=== PATIENT | female | born 1980 | race Caucasian/White ===

== ENCOUNTER 2017-05-12 09:26 | Emergency (ER) | payer MEDICAID ==
[~2017-05-12] VITALS: Ht 167.6 cm; Wt 115.0 kg
[~2017-05-12 09:26] MED LIST: BENZ1TAB7 PO; BUSP5TAB3 PO; CLOZ200T12 PO; HYDR-569 PO; ONDA4TAB12 PO; OXCA300T PO; POLY17PO2 PO; TOPI25TA15 PO; TRAZ-143 PO; VENL75CA55 PO
[2017-05-12 09:56] VITALS: BP 122/74
[2017-05-12] MEDS ORDERED: ketorolac tromethamine 15mg/ml inj. IM ONE (10:45)
[2017-05-12] MEDS ORDERED: cyclobenzaprine 10mg tablet PO ONE (10:45)
[2017-05-12] MEDS ORDERED: METH-360 PO (10:56)
== END 2017-05-12 11:17 | disposition home or self-care (01) ==
LOC: ER 09:26
DX: S29.012A Strain of muscle and tendon of back wall of thorax, initial encounter (principal); G89.29 Other chronic pain; Z88.5 Allergy status to narcotic agent; Z79.899 Other long term (current) drug therapy; V49.9XXA Car occupant (driver) (passenger) injured in unspecified traffic accident, initial encounter; Y93.89 Activity, other specified; Y92.89 Other specified places as the place of occurrence of the external cause; Y99.8 Other external cause status
CPT/HCPCS: 96372; 99283; J1885

== ENCOUNTER 2017-11-17 14:11 | Emergency (ER) | payer MEDICAID ==
[~2017-11-17] VITALS: Ht 167.6 cm; Wt 114.0 kg
[~2017-11-17 14:11] MED LIST changes: +METH-360 PO; -OXCA300T PO; +OXCA300T16 PO; -TRAZ-143 PO; +TRAZ-218 PO
[2017-11-17] MEDS ORDERED: morphine 4 MG/ML inj SYRINge IV PRN (14:25)
[2017-11-17] MEDS ORDERED: ondansetron/PF 4mg/2ml inj IV ONE (14:25)
[2017-11-17] MEDS ORDERED: propofol 10mg/ml 20ml vial IV ONE (14:35)
[2017-11-17] MEDS ORDERED: HYDR-565 PO (15:39)
[2017-11-17 16:41] VITALS: BP 148/77
== END 2017-11-17 16:45 | disposition home or self-care (01) ==
LOC: ER 14:11
DX: S82.831A Other fracture of upper and lower end of right fibula, initial encounter for closed fracture (principal); S82.301A Unspecified fracture of lower end of right tibia, initial encounter for closed fracture; G89.29 Other chronic pain; M54.9 Dorsalgia, unspecified; Z88.6 Allergy status to analgesic agent; X58.XXXA Exposure to other specified factors, initial encounter; Y93.89 Activity, other specified; Y92.89 Other specified places as the place of occurrence of the external cause; Y99.8 Other external cause status
CPT/HCPCS: 27810; 73600; 73610; 96374; 96375; 99152; 99285; J2270; J2405; J2704; J7030

== ENCOUNTER 2017-11-19 17:52 | Inpatient (IN) | payer MEDICAID ==
[~2017-11-19] VITALS: Ht 168.9 cm; Wt 109.0 kg
[~2017-11-19 17:52] MED LIST changes: +HYDR-565 PO
[2017-11-19] MEDS ORDERED: normal saline 1000ML IV soln IVB ONE ×2 (18:35)
[2017-11-19 18:59] LABS: BASOPHILS % (AUTO) 0.3 % (0-1); EOSINOPHILS # (AUTO) 0.2 X10'3 (0-0.9); EOSINOPHILS % (AUTO) 1.4 % (0-6); HEMATOCRIT 30.3 % (35.0-45.0); HEMOGLOBIN 10.1 g/dl (12.0-16.0); LYMPHOCYTES # (AUTO) 1.8 X10'3 (1.1-4.8); LYMPHOCYTES % (AUTO) 14.1 % (21-51); MEAN CORPUSCULAR HEMOGLOBIN 27.7 PG (27.0-31.0); MEAN CORPUSCULAR HGB CONC 33.4 % (33.0-36.5); MEAN CORPUSCULAR VOLUME 82.9 FL (78-98); MEAN PLATELET VOLUME 7.9 FL (7.4-10.4); MONOCYTES # (AUTO) 1.1 X10'3 (0-0.9); MONOCYTES % (AUTO) 8.8 % (2-12); NEUTROPHILS # (AUTO) 9.7 X10'3 (1.8-7.7); NEUTROPHILS % (AUTO) 75.4 % (42-75); PLATELET COUNT 313 X10'3 (140-440); RED BLOOD COUNT 3.65 X10'6 (4.20-5.60); RED CELL DISTRIBUTION WIDTH 17.1 % (11.5-14.5); WHITE BLOOD COUNT 12.9 X10'3 (4.5-11.0)
[2017-11-19 19:14] LABS: ALANINE AMINOTRANSFERASE 105 U/L (12-78); ALBUMIN 3.3 G/DL (3.4-5.0); ALBUMIN/GLOBULIN RATIO 0.9 (1.1-1.5); ALKALINE PHOSPHATASE 162 IU/L (46-116); ANION GAP 15 (8-16); ASPARTATE AMINO TRANSFERASE 215 U/L (10-37); BILIRUBIN,TOTAL 0.4 MG/DL (0.1-1.0); BLOOD UREA NITROGEN 16 MG/DL (7-18); BUN/CREATININE RATIO 15.1 (6.6-38.0); CALCIUM 8.6 MG/DL (8.5-10.1); CHLORIDE 102 MMOL/L (99-107); CREATININE 1.06 MG/DL (0.40-0.90); ETHANOL < 0.010 GM/DL (0.0-0.010); GLUCOSE 91 MG/DL (70-104); POTASSIUM 3.2 MMOL/L (3.5-5.1); SODIUM 138 MMOL/L (135-145); TOTAL CARBON DIOXIDE 21.4 MMOL/L (24-32); TOTAL PROTEIN 6.8 G/DL (6.4-8.2); eGFR 58 ML/MIN
[2017-11-19 21:48] LABS: URINE AMPHETAMINE SCREEN NEGATIVE (Neg); URINE BARBITUATE SCREEN NEGATIVE (Neg); URINE BENZODIAZEPINES SCREEN NEGATIVE (Neg); URINE CANNABINOID SCREEN NEGATIVE (Neg); URINE COCAINE SCREEN NEGATIVE (Neg); URINE METHADONE SCREEN NEGATIVE (Neg); URINE OPIATE SCREEN POSITIVE (Neg); URINE PHENCYCLIDINE SCREEN NEGATIVE (Neg)
[2017-11-19] MEDS ORDERED: acetaminophen 325mg tablet PO PRN (22:20)
[2017-11-19] MEDS ORDERED: ondansetron/PF 4mg/2ml inj IV PRN (22:20)
[2017-11-19] MEDS ORDERED: diphenhydrAMINE 25mg capsule PO PRN (22:20)
[2017-11-19] MEDS ORDERED: acetaminophen 650mg rectal suppository RC PRN (22:20)
[2017-11-19] MEDS ORDERED: metoclopramide 5 mg/ml inj IV PRN (22:20)
[2017-11-19] MEDS ORDERED: LORazepam 2 mg/ml vial IV PRN (22:20)
[2017-11-19] MEDS ORDERED: thiamine 100mg/ml 2ml inj. IV ONE (22:20)
[2017-11-19] MEDS ORDERED: HYDROmorphone inj. 0.5 MG/0.5 ML DISP.SYRIN IV PRN ×2 (22:20)
[2017-11-19] MEDS ORDERED: haloperidol 5mg tablet PO PRN (22:20)
[2017-11-19] MEDS ORDERED: morphine 2 MG/ML inj. syringe IV PRN ×2 (22:20)
[2017-11-19] MEDS ORDERED: diphenhydrAMINE 50 mg/ml inj IV PRN (22:20)
[2017-11-19] MEDS ORDERED: bisacodyl 10mg suppository rectal RC PRN (22:20)
[2017-11-19] MEDS ORDERED: LORazepam 1 MG tablet PO PRN (22:20)
[2017-11-19] MEDS ORDERED: dextrose 50%-water 50ml dispensing syringe IV PRN (22:20)
[2017-11-19] MEDS ORDERED: mag hydrox/Alum hydrox/simeth 30ml oral suspension PO PRN (22:20)
[2017-11-19] MEDS ORDERED: haloperidol lactate 5mg/ml inj IM PRN (22:20)
[2017-11-19] MEDS ORDERED: magnesium hydroxide 30ml (MOM) UD suspension PO PRN (22:20)
[2017-11-19] MEDS ORDERED: potassium Cl 40MEQ/NS 500ml 500 ML IV PRN ×2 (22:25)
[2017-11-19] MEDS ORDERED: potassium Cl 20 mEq SR tablet PO PRN ×2 (22:25)
[2017-11-19] MEDS: pantoprazole 40 MG vial IV SCH (22:33)
[2017-11-19] MEDS: normal saline 1000ml 1,000 ML IV SCH (22:33)
[2017-11-19 22:42] LABS: PARTIAL THROMBOPLASTIN TIME 29 SECONDS (22-32)
[2017-11-19 22:46] LABS: HEMOGLOBIN A1C 5.7 % (4.5-6.2)
[2017-11-19 23:37] LABS: LIPASE 123 U/L (73-393); MAGNESIUM 2.1 MG/DL (1.5-2.4); PHOSPHORUS 2.9 MG/DL (2.3-4.5)
[2017-11-19 23:50] VITALS: BP 146/77
[2017-11-20 06:13] LABS: BASOPHILS # (AUTO) 0.1 X10'3 (0-0.2); BASOPHILS % (AUTO) 0.7 % (0-1); EOSINOPHILS # (AUTO) 0.3 X10'3 (0-0.9); EOSINOPHILS % (AUTO) 3.3 % (0-6); HEMATOCRIT 31.1 % (35.0-45.0); HEMOGLOBIN 10.4 g/dl (12.0-16.0); LYMPHOCYTES # (AUTO) 1.5 X10'3 (1.1-4.8); LYMPHOCYTES % (AUTO) 14.1 % (21-51); MEAN CORPUSCULAR HGB CONC 33.4 % (33.0-36.5); MEAN CORPUSCULAR VOLUME 83.8 FL (78-98); MEAN PLATELET VOLUME 8.6 FL (7.4-10.4); MONOCYTES # (AUTO) 0.9 X10'3 (0-0.9); MONOCYTES % (AUTO) 8.9 % (2-12); NEUTROPHILS # (AUTO) 7.8 X10'3 (1.8-7.7); PLATELET COUNT 291 X10'3 (140-440); RED BLOOD COUNT 3.71 X10'6 (4.20-5.60); RED CELL DISTRIBUTION WIDTH 17.2 % (11.5-14.5); WHITE BLOOD COUNT 10.6 X10'3 (4.5-11.0)
[2017-11-20 06:32] LABS: ALANINE AMINOTRANSFERASE 90 U/L (12-78); ALBUMIN 2.9 G/DL (3.4-5.0); ALBUMIN/GLOBULIN RATIO 0.9 (1.1-1.5); ALKALINE PHOSPHATASE 142 IU/L (46-116); ANION GAP 12 (8-16); ASPARTATE AMINO TRANSFERASE 189 U/L (10-37); BILIRUBIN,TOTAL 0.3 MG/DL (0.1-1.0); BLOOD UREA NITROGEN 9 MG/DL (7-18); CALCIUM 8.4 MG/DL (8.5-10.1); CHLORIDE 106 MMOL/L (99-107); CHOL/HDL RATIO 2.8 (0.00-4.99); CHOLESTEROL 186 MG/DL (0-200); CREATININE 0.69 MG/DL (0.40-0.90); GLUCOSE 100 MG/DL (70-104); HDL CHOLESTEROL 67 MG/DL (35-60); LDL CHOLESTEROL 102 MG/DL (50-100); POTASSIUM 3.7 MMOL/L (3.5-5.1); SODIUM 141 MMOL/L (135-145); TOTAL CARBON DIOXIDE 22.9 MMOL/L (24-32); TOTAL PROTEIN 6.3 G/DL (6.4-8.2); TRIGLYCERIDES 111 MG/DL (20-135); eGFR > 90 ML/MIN
[2017-11-20 07:05] VITALS: BP 134/81
[2017-11-20] MEDS: venlafaxine XR 75mg capsule (Q24H) PO SCH (07:52)
[2017-11-20] MEDS: oxcarbazepine 150mg tablet PO SCH ×2 (07:52→20:43)
[2017-11-20] MEDS: docusate sod 100mg capsule PO SCH ×2 (07:53→20:42)
[2017-11-20] MEDS: HYDROcodone/acetaminophen 5mg/325mg tablet PO PRN (07:53)
[2017-11-20] MEDS: topiramate 25mg tablet PO SCH ×2 (07:53→20:43)
[2017-11-20] MEDS: pantoprazole 40 MG vial IV SCH (07:53)
[2017-11-20] MEDS: normal saline 1000ml 1,000 ML IV SCH ×2 (07:53→20:43)
[2017-11-20 12:35] VITALS: BP 119/80
[2017-11-20] MEDS: HYDROcodone/acetaminophen 10/325mg tab PO PRN ×3 (14:12→23:43)
[2017-11-20 18:00] VITALS: BP 105/65
[2017-11-20] MEDS: clozapine 25mg tablet PO SCH (20:42)
[2017-11-20] MEDS: clozapine 100mg tablet PO SCH (20:43)
[2017-11-20] MEDS: temazepam 15mg capsule PO PRN (20:43)
[2017-11-20 22:00] VITALS: BP 92/50
[2017-11-21] MEDS: normal saline 1000ml 1,000 ML IV SCH ×2 (04:16→11:43)
[2017-11-21 06:13] LABS: BASOPHILS % (AUTO) 0.4 % (0-1); EOSINOPHILS # (AUTO) 0.4 X10'3 (0-0.9); EOSINOPHILS % (AUTO) 4.1 % (0-6); HEMATOCRIT 30.7 % (35.0-45.0); HEMOGLOBIN 10.3 g/dl (12.0-16.0); LYMPHOCYTES # (AUTO) 1.9 X10'3 (1.1-4.8); LYMPHOCYTES % (AUTO) 20.4 % (21-51); MEAN CORPUSCULAR HEMOGLOBIN 28.3 PG (27.0-31.0); MEAN CORPUSCULAR HGB CONC 33.5 % (33.0-36.5); MEAN CORPUSCULAR VOLUME 84.5 FL (78-98); MEAN PLATELET VOLUME 8.1 FL (7.4-10.4); MONOCYTES # (AUTO) 0.6 X10'3 (0-0.9); MONOCYTES % (AUTO) 6.7 % (2-12); NEUTROPHILS # (AUTO) 6.5 X10'3 (1.8-7.7); NEUTROPHILS % (AUTO) 68.4 % (42-75); PLATELET COUNT 304 X10'3 (140-440); RED BLOOD COUNT 3.63 X10'6 (4.20-5.60); RED CELL DISTRIBUTION WIDTH 17.1 % (11.5-14.5); WHITE BLOOD COUNT 9.5 X10'3 (4.5-11.0)
[2017-11-21 06:15] LABS: CLARITY,URINE SLIGHTLY CLOUDY (Clear); COLOR,URINE YELLOW (Yellow); GLUCOSE, URINE NEGATIVE (Neg); KETONES,URINE NEGATIVE (Neg); LEUKOCYTE ESTERASE ,URINE NEGATIVE (Neg); NITRITES, URINE NEGATIVE (Neg); OCCULT BLOOD,URINE MODERATE (Neg); PH,URINE 7.5 (4.8-8.0); PROTEIN,URINE TRACE mg/dl (Neg)
[2017-11-21 06:17] LABS: UA COLLECTION TYPE NON-SPECIFIED
[2017-11-21 06:22] LABS: AMORPHOUS PHOSPHATES 2+; BACTERIA,URINE FEW /HPF (Neg); SQUAMOUS EPITHELIAL CELL,UR FEW /LPF (FEW)
[2017-11-21 06:49] LABS: ALANINE AMINOTRANSFERASE 82 U/L (12-78); ALBUMIN 2.6 G/DL (3.4-5.0); ALBUMIN/GLOBULIN RATIO 0.8 (1.1-1.5); ALKALINE PHOSPHATASE 130 IU/L (46-116); ANION GAP 8 (8-16); ASPARTATE AMINO TRANSFERASE 99 U/L (10-37); BILIRUBIN,TOTAL 0.3 MG/DL (0.1-1.0); BLOOD UREA NITROGEN 6 MG/DL (7-18); BUN/CREATININE RATIO 7.8 (6.6-38.0); CALCIUM 8.3 MG/DL (8.5-10.1); CHLORIDE 110 MMOL/L (99-107); CREATININE 0.77 MG/DL (0.40-0.90); GLUCOSE 111 MG/DL (70-104); POTASSIUM 3.6 MMOL/L (3.5-5.1); SODIUM 144 MMOL/L (135-145); TOTAL CARBON DIOXIDE 26.2 MMOL/L (24-32); TOTAL PROTEIN 5.9 G/DL (6.4-8.2); eGFR 83 ML/MIN
[2017-11-21 06:52] VITALS: BP 120/76
[2017-11-21] MEDS: HYDROcodone/acetaminophen 10/325mg tab PO PRN ×4 (07:26→21:13)
[2017-11-21] MEDS: oxcarbazepine 150mg tablet PO SCH ×2 (07:26→19:38)
[2017-11-21] MEDS: venlafaxine XR 75mg capsule (Q24H) PO SCH (07:27)
[2017-11-21] MEDS: topiramate 25mg tablet PO SCH ×2 (07:27→19:37)
[2017-11-21] MEDS: pantoprazole 40 MG vial IV SCH (07:27)
[2017-11-21] MEDS: docusate sod 100mg capsule PO SCH ×2 (07:27→19:38)
[2017-11-21 18:00] VITALS: BP 125/79
[2017-11-21] MEDS: clozapine 100mg tablet PO SCH (19:38)
[2017-11-21] MEDS: temazepam 15mg capsule PO PRN (19:38)
[2017-11-21] MEDS: clozapine 25mg tablet PO SCH (19:38)
[2017-11-21 22:00] VITALS: BP 129/80
[2017-11-22] MEDS: normal saline 1000ml 1,000 ML IV SCH ×3 (00:16→20:16)
[2017-11-22] MEDS: HYDROcodone/acetaminophen 5mg/325mg tablet PO PRN (03:34)
[2017-11-22 06:02] LABS: ALANINE AMINOTRANSFERASE 66 U/L (12-78); ALBUMIN 2.7 G/DL (3.4-5.0); ALBUMIN/GLOBULIN RATIO 0.8 (1.1-1.5); ALKALINE PHOSPHATASE 133 IU/L (46-116); ANION GAP 7 (8-16); ASPARTATE AMINO TRANSFERASE 73 U/L (10-37); BILIRUBIN,TOTAL 0.2 MG/DL (0.1-1.0); BLOOD UREA NITROGEN 7 MG/DL (7-18); BUN/CREATININE RATIO 9.2 (6.6-38.0); CALCIUM 8.7 MG/DL (8.5-10.1); CHLORIDE 109 MMOL/L (99-107); CREATININE 0.76 MG/DL (0.40-0.90); GLUCOSE 107 MG/DL (70-104); MAGNESIUM 1.8 MG/DL (1.5-2.4); POTASSIUM 3.6 MMOL/L (3.5-5.1); SODIUM 141 MMOL/L (135-145); TOTAL CARBON DIOXIDE 24.9 MMOL/L (24-32); TOTAL PROTEIN 6.1 G/DL (6.4-8.2); eGFR 85 ML/MIN
[2017-11-22 06:37] LABS: BASOPHILS % (AUTO) 0.5 % (0-1); EOSINOPHILS # (AUTO) 0.3 X10'3 (0-0.9); EOSINOPHILS % (AUTO) 5.1 % (0-6); HEMATOCRIT 30.8 % (35.0-45.0); HEMOGLOBIN 10.6 g/dl (12.0-16.0); LYMPHOCYTES % (AUTO) 30.1 % (21-51); MEAN CORPUSCULAR HEMOGLOBIN 29.1 PG (27.0-31.0); MEAN CORPUSCULAR HGB CONC 34.2 % (33.0-36.5); MEAN CORPUSCULAR VOLUME 84.9 FL (78-98); MEAN PLATELET VOLUME 9.1 FL (7.4-10.4); MONOCYTES # (AUTO) 0.4 X10'3 (0-0.9); NEUTROPHILS # (AUTO) 3.9 X10'3 (1.8-7.7); NEUTROPHILS % (AUTO) 58.3 % (42-75); PLATELET COUNT 309 X10'3 (140-440); RED BLOOD COUNT 3.63 X10'6 (4.20-5.60); RED CELL DISTRIBUTION WIDTH 16.6 % (11.5-14.5); WHITE BLOOD COUNT 6.6 X10'3 (4.5-11.0)
[2017-11-22 06:54] VITALS: BP 112/62
[2017-11-22] MEDS: pantoprazole 40mg Tablet.DR PO SCH (08:01)
[2017-11-22] MEDS: oxcarbazepine 150mg tablet PO SCH ×2 (08:02→19:56)
[2017-11-22] MEDS: topiramate 25mg tablet PO SCH ×2 (08:02→19:55)
[2017-11-22] MEDS: docusate sod 100mg capsule PO SCH ×2 (08:02→19:55)
[2017-11-22] MEDS: venlafaxine XR 75mg capsule (Q24H) PO SCH (08:03)
[2017-11-22] MEDS: HYDROcodone/acetaminophen 10/325mg tab PO PRN ×4 (08:11→22:19)
[2017-11-22] MEDS ORDERED: COL100C PO (09:14)
[2017-11-22] MEDS ORDERED: HYDR-3972 PO (09:14)
[2017-11-22 10:00] VITALS: BP 129/68
[2017-11-22 13:29] VITALS: BP 123/86
[2017-11-22] MEDS ORDERED: BUPR150T8 PO (15:23)
[2017-11-22 18:00] VITALS: BP 132/70
[2017-11-22] MEDS: clozapine 100mg tablet PO SCH (19:56)
[2017-11-22] MEDS: clozapine 25mg tablet PO SCH (19:56)
[2017-11-22 22:00] VITALS: BP 113/69
[2017-11-23] MEDS: HYDROcodone/acetaminophen 10/325mg tab PO PRN ×5 (02:17→17:56)
[2017-11-23 05:43] LABS: BASOPHILS % (AUTO) 0.5 % (0-1); EOSINOPHILS # (AUTO) 0.3 X10'3 (0-0.9); EOSINOPHILS % (AUTO) 4.9 % (0-6); HEMATOCRIT 31.3 % (35.0-45.0); HEMOGLOBIN 10.4 g/dl (12.0-16.0); LYMPHOCYTES % (AUTO) 30.9 % (21-51); MEAN CORPUSCULAR HEMOGLOBIN 28.2 PG (27.0-31.0); MEAN CORPUSCULAR HGB CONC 33.4 % (33.0-36.5); MEAN CORPUSCULAR VOLUME 84.5 FL (78-98); MEAN PLATELET VOLUME 8.1 FL (7.4-10.4); MONOCYTES # (AUTO) 0.5 X10'3 (0-0.9); MONOCYTES % (AUTO) 7.2 % (2-12); NEUTROPHILS # (AUTO) 3.7 X10'3 (1.8-7.7); NEUTROPHILS % (AUTO) 56.5 % (42-75); PLATELET COUNT 341 X10'3 (140-440); RED CELL DISTRIBUTION WIDTH 17.4 % (11.5-14.5); WHITE BLOOD COUNT 6.5 X10'3 (4.5-11.0)
[2017-11-23 06:00] VITALS: BP 124/66
[2017-11-23 06:04] LABS: ALANINE AMINOTRANSFERASE 62 U/L (12-78); ALBUMIN 2.8 G/DL (3.4-5.0); ALBUMIN/GLOBULIN RATIO 0.8 (1.1-1.5); ALKALINE PHOSPHATASE 126 IU/L (46-116); ANION GAP 8 (8-16); ASPARTATE AMINO TRANSFERASE 54 U/L (10-37); BILIRUBIN,TOTAL 0.3 MG/DL (0.1-1.0); CALCIUM 8.7 MG/DL (8.5-10.1); CHLORIDE 107 MMOL/L (99-107); CREATININE 0.83 MG/DL (0.40-0.90); GLUCOSE 92 MG/DL (70-104); MAGNESIUM 1.9 MG/DL (1.5-2.4); POTASSIUM 3.6 MMOL/L (3.5-5.1); SODIUM 142 MMOL/L (135-145); TOTAL CARBON DIOXIDE 27.4 MMOL/L (24-32); TOTAL PROTEIN 6.1 G/DL (6.4-8.2); eGFR 77 ML/MIN
[2017-11-23] MEDS: normal saline 1000ml 1,000 ML IV SCH ×2 (06:16→16:16)
[2017-11-23 06:19] LABS: BLOOD UREA NITROGEN 7 MG/DL (7-18); BUN/CREATININE RATIO 8.4 (6.6-38.0)
[2017-11-23] MEDS: topiramate 25mg tablet PO SCH ×2 (07:16→20:32)
[2017-11-23] MEDS: docusate sod 100mg capsule PO SCH ×2 (07:16→20:31)
[2017-11-23] MEDS: venlafaxine XR 75mg capsule (Q24H) PO SCH (07:17)
[2017-11-23] MEDS: oxcarbazepine 150mg tablet PO SCH ×2 (07:17→20:31)
[2017-11-23] MEDS: pantoprazole 40mg Tablet.DR PO SCH (07:18)
[2017-11-23 10:00] VITALS: BP 119/76
[2017-11-23 18:00] VITALS: BP 118/73
[2017-11-23] MEDS: clozapine 25mg tablet PO SCH (20:31)
[2017-11-23] MEDS: temazepam 15mg capsule PO PRN (20:31)
[2017-11-23] MEDS: clozapine 100mg tablet PO SCH (20:32)
[2017-11-23 22:30] VITALS: BP 145/103
[2017-11-24] MEDS: HYDROcodone/acetaminophen 10/325mg tab PO PRN ×5 (01:25→19:31)
[2017-11-24] MEDS: normal saline 1000ml 1,000 ML IV SCH ×2 (02:16→12:16)
[2017-11-24 05:13] LABS: BASOPHILS % (AUTO) 0.5 % (0-1); EOSINOPHILS # (AUTO) 0.4 X10'3 (0-0.9); EOSINOPHILS % (AUTO) 5.1 % (0-6); HEMATOCRIT 32.2 % (35.0-45.0); HEMOGLOBIN 10.7 g/dl (12.0-16.0); LYMPHOCYTES # (AUTO) 2.1 X10'3 (1.1-4.8); LYMPHOCYTES % (AUTO) 28.5 % (21-51); MEAN CORPUSCULAR HEMOGLOBIN 28.1 PG (27.0-31.0); MEAN CORPUSCULAR HGB CONC 33.3 % (33.0-36.5); MEAN CORPUSCULAR VOLUME 84.3 FL (78-98); MEAN PLATELET VOLUME 7.9 FL (7.4-10.4); MONOCYTES # (AUTO) 0.5 X10'3 (0-0.9); MONOCYTES % (AUTO) 7.3 % (2-12); NEUTROPHILS # (AUTO) 4.3 X10'3 (1.8-7.7); NEUTROPHILS % (AUTO) 58.6 % (42-75); PLATELET COUNT 373 X10'3 (140-440); RED BLOOD COUNT 3.82 X10'6 (4.20-5.60); RED CELL DISTRIBUTION WIDTH 17.5 % (11.5-14.5); WHITE BLOOD COUNT 7.4 X10'3 (4.5-11.0)
[2017-11-24 05:45] LABS: ALANINE AMINOTRANSFERASE 71 U/L (12-78); ALBUMIN 2.9 G/DL (3.4-5.0); ALBUMIN/GLOBULIN RATIO 0.9 (1.1-1.5); ALKALINE PHOSPHATASE 138 IU/L (46-116); ANION GAP 8 (8-16); ASPARTATE AMINO TRANSFERASE 57 U/L (10-37); BILIRUBIN,TOTAL 0.2 MG/DL (0.1-1.0); BLOOD UREA NITROGEN 8 MG/DL (7-18); BUN/CREATININE RATIO 8.7 (6.6-38.0); CALCIUM 8.6 MG/DL (8.5-10.1); CHLORIDE 107 MMOL/L (99-107); CREATININE 0.92 MG/DL (0.40-0.90); GLUCOSE 99 MG/DL (70-104); SODIUM 143 MMOL/L (135-145); TOTAL CARBON DIOXIDE 28.1 MMOL/L (24-32); TOTAL PROTEIN 6.3 G/DL (6.4-8.2); eGFR 68 ML/MIN
[2017-11-24 06:00] VITALS: BP 123/79
[2017-11-24] MEDS: topiramate 25mg tablet PO SCH ×2 (08:19→19:30)
[2017-11-24] MEDS: pantoprazole 40mg Tablet.DR PO SCH (08:19)
[2017-11-24] MEDS: docusate sod 100mg capsule PO SCH ×2 (08:19→19:36)
[2017-11-24] MEDS: oxcarbazepine 150mg tablet PO SCH ×2 (08:20→19:30)
[2017-11-24] MEDS: venlafaxine XR 75mg capsule (Q24H) PO SCH (08:21)
[2017-11-24 10:00] VITALS: BP 123/63
[2017-11-24 18:00] VITALS: BP 103/64
[2017-11-24] MEDS: busPIRone 15mg tablet PO SCH (19:30)
[2017-11-24] MEDS: clozapine 100mg tablet PO SCH (19:32)
[2017-11-24] MEDS: clozapine 25mg tablet PO SCH (19:35)
[2017-11-24] MEDS: temazepam 15mg capsule PO PRN (21:14)
[2017-11-24 22:00] VITALS: BP 105/52
[2017-11-25] MEDS: HYDROcodone/acetaminophen 10/325mg tab PO PRN ×6 (00:54→22:19)
[2017-11-25 06:00] VITALS: BP 102/74
[2017-11-25] MEDS: docusate sod 100mg capsule PO SCH ×2 (08:29→20:16)
[2017-11-25] MEDS: pantoprazole 40mg Tablet.DR PO SCH (08:29)
[2017-11-25] MEDS: busPIRone 15mg tablet PO SCH ×2 (08:29→20:17)
[2017-11-25] MEDS: oxcarbazepine 150mg tablet PO SCH ×2 (08:30→20:16)
[2017-11-25] MEDS: buPROPion SR 150mg tablet PO SCH (08:30)
[2017-11-25] MEDS: topiramate 25mg tablet PO SCH ×2 (08:30→20:17)
[2017-11-25] MEDS: venlafaxine XR 75mg capsule (Q24H) PO SCH (08:31)
[2017-11-25 10:00] VITALS: BP 107/77
[2017-11-25 18:00] VITALS: BP 118/68
[2017-11-25] MEDS: temazepam 15mg capsule PO PRN (20:15)
[2017-11-25] MEDS: clozapine 25mg tablet PO SCH (20:17)
[2017-11-25] MEDS: clozapine 100mg tablet PO SCH (20:17)
[2017-11-25 22:00] VITALS: BP 131/68
[2017-11-26] MEDS: HYDROcodone/acetaminophen 10/325mg tab PO PRN ×5 (04:35→21:21)
[2017-11-26 06:00] VITALS: BP 110/65
[2017-11-26] MEDS: busPIRone 15mg tablet PO SCH ×2 (08:09→20:35)
[2017-11-26] MEDS: pantoprazole 40mg Tablet.DR PO SCH (08:09)
[2017-11-26] MEDS: buPROPion SR 150mg tablet PO SCH (08:09)
[2017-11-26] MEDS: oxcarbazepine 150mg tablet PO SCH ×2 (08:10→20:35)
[2017-11-26] MEDS: topiramate 25mg tablet PO SCH ×2 (08:10→20:35)
[2017-11-26] MEDS: docusate sod 100mg capsule PO SCH ×2 (08:10→20:35)
[2017-11-26] MEDS: venlafaxine XR 75mg capsule (Q24H) PO SCH (08:10)
[2017-11-26 10:00] VITALS: BP 122/62
[2017-11-26 18:00] VITALS: BP 97/68
[2017-11-26] MEDS: clozapine 25mg tablet PO SCH (20:36)
[2017-11-26] MEDS: clozapine 100mg tablet PO SCH (20:37)
[2017-11-26] MEDS: temazepam 15mg capsule PO PRN (21:21)
[2017-11-26 22:00] VITALS: BP 117/54
[2017-11-27] MEDS: HYDROcodone/acetaminophen 10/325mg tab PO PRN ×4 (01:54→14:48)
[2017-11-27 06:00] VITALS: BP 116/65
[2017-11-27] MEDS: topiramate 25mg tablet PO SCH ×2 (07:07→20:12)
[2017-11-27] MEDS: busPIRone 15mg tablet PO SCH ×2 (07:07→20:12)
[2017-11-27] MEDS: pantoprazole 40mg Tablet.DR PO SCH (07:07)
[2017-11-27] MEDS: venlafaxine XR 75mg capsule (Q24H) PO SCH (07:07)
[2017-11-27] MEDS: docusate sod 100mg capsule PO SCH ×2 (07:07→20:12)
[2017-11-27] MEDS: buPROPion SR 150mg tablet PO SCH (07:07)
[2017-11-27] MEDS: oxcarbazepine 150mg tablet PO SCH ×2 (07:08→20:12)
[2017-11-27 10:00] VITALS: BP 109/63
[2017-11-27 18:00] VITALS: BP 121/61
[2017-11-27] MEDS: HYDROcodone/acetaminophen 5mg/325mg tablet PO PRN (18:54)
[2017-11-27] MEDS: clozapine 25mg tablet PO SCH (20:12)
[2017-11-27] MEDS: temazepam 15mg capsule PO PRN (20:12)
[2017-11-27] MEDS: clozapine 100mg tablet PO SCH (20:31)
[2017-11-27 21:45] VITALS: BP 107/65
[2017-11-28] MEDS: HYDROcodone/acetaminophen 5mg/325mg tablet PO PRN ×5 (02:52→19:38)
[2017-11-28 06:34] VITALS: BP 124/69
[2017-11-28] MEDS: pantoprazole 40mg Tablet.DR PO SCH (06:51)
[2017-11-28] MEDS: topiramate 25mg tablet PO SCH ×2 (07:13→19:38)
[2017-11-28] MEDS: oxcarbazepine 150mg tablet PO SCH ×2 (07:13→19:38)
[2017-11-28] MEDS: buPROPion SR 150mg tablet PO SCH (07:13)
[2017-11-28] MEDS: venlafaxine XR 75mg capsule (Q24H) PO SCH (07:13)
[2017-11-28] MEDS: docusate sod 100mg capsule PO SCH ×2 (07:14→19:38)
[2017-11-28] MEDS: busPIRone 15mg tablet PO SCH ×2 (07:14→19:38)
[2017-11-28 11:01] VITALS: BP 100/59
[2017-11-28 18:00] VITALS: BP 118/66
[2017-11-28] MEDS: clozapine 100mg tablet PO SCH (20:36)
[2017-11-28] MEDS: clozapine 25mg tablet PO SCH (20:36)
[2017-11-28] MEDS: temazepam 15mg capsule PO PRN (20:38)
[2017-11-28 22:00] VITALS: BP 107/65
[2017-11-29] MEDS: HYDROcodone/acetaminophen 5mg/325mg tablet PO PRN ×6 (00:08→21:17)
[2017-11-29 06:00] VITALS: BP 112/70
[2017-11-29] MEDS: pantoprazole 40mg Tablet.DR PO SCH (08:00)
[2017-11-29] MEDS: busPIRone 15mg tablet PO SCH ×2 (08:01→20:11)
[2017-11-29] MEDS: docusate sod 100mg capsule PO SCH ×2 (08:01→20:11)
[2017-11-29] MEDS: venlafaxine XR 75mg capsule (Q24H) PO SCH (08:02)
[2017-11-29] MEDS: topiramate 25mg tablet PO SCH ×2 (08:03→20:11)
[2017-11-29] MEDS: oxcarbazepine 150mg tablet PO SCH ×2 (08:04→20:11)
[2017-11-29] MEDS: buPROPion SR 150mg tablet PO SCH (08:04)
[2017-11-29 10:00] VITALS: BP 119/75
[2017-11-29 18:00] VITALS: BP 127/70
[2017-11-29] MEDS: clozapine 25mg tablet PO SCH (21:14)
[2017-11-29] MEDS: clozapine 100mg tablet PO SCH (21:14)
[2017-11-29] MEDS: temazepam 15mg capsule PO PRN (21:18)
[2017-11-29 22:00] VITALS: BP 101/56
[2017-11-30] VITALS (19 sets, daily range): BP systolic 98–154; BP diastolic 52–88
[2017-11-30] MEDS: HYDROcodone/acetaminophen 5mg/325mg tablet PO PRN ×5 (02:35→22:59)
[2017-11-30 04:42] LABS: HEMOGLOBIN 11.6 g/dl (12.0-16.0); MONOCYTES # (AUTO) 0.6 X10'3 (0-0.9); RED BLOOD COUNT 4.14 X10'6 (4.20-5.60); WHITE BLOOD COUNT 7.2 X10'3 (4.5-11.0)
[2017-11-30 04:54] LABS: BASOPHILS % (AUTO) 0.7 % (0-1); EOSINOPHILS # (AUTO) 0.3 X10'3 (0-0.9); EOSINOPHILS % (AUTO) 4.5 % (0-6); HEMATOCRIT 34.6 % (35.0-45.0); LYMPHOCYTES % (AUTO) 27.5 % (21-51); MEAN CORPUSCULAR HGB CONC 33.5 % (33.0-36.5); MEAN CORPUSCULAR VOLUME 83.6 FL (78-98); MEAN PLATELET VOLUME 8.1 FL (7.4-10.4); MONOCYTES % (AUTO) 7.8 % (2-12); NEUTROPHILS # (AUTO) 4.3 X10'3 (1.8-7.7); NEUTROPHILS % (AUTO) 59.5 % (42-75); PLATELET COUNT 382 X10'3 (140-440); RED CELL DISTRIBUTION WIDTH 17.6 % (11.5-14.5)
[2017-11-30 04:59] LABS: ALBUMIN 3.2 G/DL (3.4-5.0); ANION GAP 9 (8-16); BLOOD UREA NITROGEN 15 MG/DL (7-18); BUN/CREATININE RATIO 15.6 (6.6-38.0); CALCIUM 8.9 MG/DL (8.5-10.1); CHLORIDE 103 MMOL/L (99-107); CREATININE 0.96 MG/DL (0.40-0.90); GLUCOSE 101 MG/DL (70-104); POTASSIUM 3.7 MMOL/L (3.5-5.1); SODIUM 139 MMOL/L (135-145); TOTAL CARBON DIOXIDE 27.1 MMOL/L (24-32); eGFR 65 ML/MIN
[2017-11-30] MEDS ORDERED: ceFAZolin 1GM/D5W- ADD-VANTAGE 50 ML IV ONE (07:00)
[2017-11-30] MEDS: pantoprazole 40mg Tablet.DR PO SCH (07:24)
[2017-11-30] MEDS: topiramate 25mg tablet PO SCH ×2 (07:24→19:45)
[2017-11-30] MEDS: buPROPion SR 150mg tablet PO SCH (07:24)
[2017-11-30] MEDS: oxcarbazepine 150mg tablet PO SCH ×2 (07:24→19:45)
[2017-11-30] MEDS: busPIRone 15mg tablet PO SCH ×2 (07:24→19:45)
[2017-11-30] MEDS: docusate sod 100mg capsule PO SCH ×2 (07:24→19:45)
[2017-11-30] MEDS: venlafaxine XR 75mg capsule (Q24H) PO SCH (07:24)
[2017-11-30] MEDS: ringers solution, lacted 1,000 ML IV SCH ×2 (10:49→19:01)
[2017-11-30] MEDS ORDERED: ceFAZolin 1000mg inj ONE (14:28)
[2017-11-30] MEDS ORDERED: BUPIVAcaine/PF 2.5mg/ml (0.25%) 10ml vial ONE (14:29)
[2017-11-30] MEDS ORDERED: sevoflurane 250ml liquid IH ONE (14:52)
[2017-11-30] MEDS ORDERED: ketorolac trometh. 30mg/ml inj. ONE (14:52)
[2017-11-30] MEDS ORDERED: dexamethasone sod phosphate 10mg/ml inj ONE (14:52)
[2017-11-30] MEDS ORDERED: propofol 10mg/ml 20ml vial IV ONE (14:52)
[2017-11-30] MEDS ORDERED: fentaNYL/PF 50MCG/1 ML 2ML syringe ONE (15:01)
[2017-11-30] MEDS ORDERED: MIDAZolam 5mg/5ml vial ONE (15:02)
[2017-11-30] MEDS ORDERED: propofol inj 20 ML IV ONE (15:03)
[2017-11-30] MEDS ORDERED: LIDOcaine 2% (20mg/ml) 5ml vial ONE (15:03)
[2017-11-30] MEDS ORDERED: ondansetron/PF 4mg/2ml inj ONE (16:01)
[2017-11-30] MEDS ORDERED: ringers solution, lacted 1,000 ML IV SCH (16:23)
[2017-11-30] MEDS ORDERED: ondansetron/PF 4mg/2ml inj IV PRN (16:25)
[2017-11-30] MEDS ORDERED: proCHLORperazine 10 MG/2 ml inj IV PRN (16:25)
[2017-11-30] MEDS ORDERED: morphine 4 MG/ML inj SYRINge IV PRN ×2 (16:25)
[2017-11-30] MEDS ORDERED: meperidine/PF 25mg/ml syringe IV PRN ×2 (16:25)
[2017-11-30] MEDS ORDERED: meperidine/PF 25mg/ml syringe ONE (16:27)
[2017-11-30] MEDS: meperidine/PF 25mg/ml syringe IV PRN ×3 (16:31→16:50)
[2017-11-30] MEDS ORDERED: acetaminophen 1,000mg/100ml IV 100 ML IV ONE (16:35)
[2017-11-30] MEDS: temazepam 15mg capsule PO PRN (21:15)
[2017-11-30] MEDS: clozapine 25mg tablet PO SCH (21:15)
[2017-11-30] MEDS: clozapine 100mg tablet PO SCH (21:15)
[2017-12-01 02:00] VITALS: BP 121/73
[2017-12-01] MEDS: HYDROcodone/acetaminophen 5mg/325mg tablet PO PRN ×3 (02:46→10:08)
[2017-12-01 06:00] VITALS: BP 116/77
[2017-12-01] MEDS: topiramate 25mg tablet PO SCH (08:06)
[2017-12-01] MEDS: buPROPion SR 150mg tablet PO SCH (08:06)
[2017-12-01] MEDS: busPIRone 15mg tablet PO SCH (08:06)
[2017-12-01] MEDS: venlafaxine XR 75mg capsule (Q24H) PO SCH (08:06)
[2017-12-01] MEDS: docusate sod 100mg capsule PO SCH (08:07)
[2017-12-01] MEDS: oxcarbazepine 150mg tablet PO SCH (08:07)
[2017-12-01] MEDS: pantoprazole 40mg Tablet.DR PO SCH (08:07)
[2017-12-01 10:02] VITALS: BP 123/72
== END 2017-12-01 14:11 | disposition home or self-care (01) | DRG 313 ==
LOC: ER 17:53 → ED HOLD 22:16 → ORTHO 4S 23:50
PROVIDERS: ADMIT Family Medicine; ATTEND Internal Medicine
PROC: 2W3QX1Z Immobilization of Right Lower Leg using Splint (ICD-10-PCS; 2017-11-19)
PROC: 0QSJ04Z Reposition Right Fibula with Internal Fixation Device, Open Approach (ICD-10-PCS; principal; 2017-11-30 14:52)
DX: S82.891A Other fracture of right lower leg, initial encounter for closed fracture (principal); G92 Toxic encephalopathy; E66.01 Morbid (severe) obesity due to excess calories; F20.9 Schizophrenia, unspecified; E87.6 Hypokalemia; F10.20 Alcohol dependence, uncomplicated; D64.9 Anemia, unspecified; S93.431A Sprain of tibiofibular ligament of right ankle, initial encounter; F31.9 Bipolar disorder, unspecified; I10 Essential (primary) hypertension; K70.10 Alcoholic hepatitis without ascites; W01.0XXA Fall on same level from slipping, tripping and stumbling without subsequent striking against object, initial encounter; G89.29 Other chronic pain; M54.9 Dorsalgia, unspecified; Z87.891 Personal history of nicotine dependence; Z68.38 Body mass index [BMI] 38.0-38.9, adult; Y93.89 Activity, other specified; Y92.89 Other specified places as the place of occurrence of the external cause; Y99.8 Other external cause status; Z88.5 Allergy status to narcotic agent; Z79.899 Other long term (current) drug therapy
CPT/HCPCS: 36415; 71045; 73590; 73610; 80048; 80053; 80061; 80305; 80320; 81001; 82948; 83036; 83690; 83735; 83880; 84100; 85025; 85610; 85730; 87070; 87088; 97110; 97116; 97161; 97530; 97535; 99285; A4315; A6222; A6449; A7000; C1713; C9113; J0131; J0690; J1100; J1885; J2001; J2175; J2250; J2270; J2405; J2704; J3010; J3370; J3411; J3480; J3490; J7030; J7120

== ENCOUNTER 2018-01-10 12:53 | Inpatient (IN) | payer MEDICAID ==
[2018-01-09 16:17] LABS: BASOPHILS % (AUTO) 0.5 % (0-1); EOSINOPHILS # (AUTO) 0.4 X10'3 (0-0.9); EOSINOPHILS % (AUTO) 4.2 % (0-6); LYMPHOCYTES # (AUTO) 2.5 X10'3 (1.1-4.8); LYMPHOCYTES % (AUTO) 26.2 % (21-51); MEAN CORPUSCULAR HEMOGLOBIN 27.8 PG (27.0-31.0); MEAN CORPUSCULAR HGB CONC 32.3 % (33.0-36.5); MEAN CORPUSCULAR VOLUME 86.2 FL (78-98); MEAN PLATELET VOLUME 8.6 FL (7.4-10.4); MONOCYTES # (AUTO) 0.5 X10'3 (0-0.9); MONOCYTES % (AUTO) 5.5 % (2-12); NEUTROPHILS # (AUTO) 6.1 X10'3 (1.8-7.7); NEUTROPHILS % (AUTO) 63.6 % (42-75); PRE OP HEMATOCRIT 35.6 % (35.0-45.0); PRE OP HEMOGLOBIN 11.5 g/dL (12.0-16.0); PRE OP PLATELET COUNT 389 X10'3 (140-440); RED BLOOD COUNT 4.13 X10'6 (4.20-5.60); RED CELL DISTRIBUTION WIDTH 16.3 % (11.5-14.5)
[2018-01-09 16:35] LABS: ALBUMIN 3.5 G/DL (3.4-5.0); ALKALINE PHOSPHATASE 183 IU/L (46-116); BLOOD UREA NITROGEN 8 MG/DL (7-18); BUN/CREATININE RATIO 7.7 (6.6-38.0); CALCIUM 9.3 MG/DL (8.5-10.1); CHLORIDE 103 MMOL/L (99-107); CREATININE 1.04 MG/DL (0.40-0.90); PRE OP ALT 54 U/L (30-65); PRE OP ANION GAP 10 (8-16); PRE OP AST 51 U/L (10-37); PRE OP BILIRUB, TOTAL 0.1 MG/DL (0.0-1.0); PRE OP GLUCOSE 154 MG/DL (70-104); PRE OP SODIUM 137 MMOL/L (135-145); TOTAL CARBON DIOXIDE 24.5 MMOL/L (24-32); TOTAL PROTEIN 7.1 G/DL (6.4-8.2); eGFR 59 ML/MIN
[2018-01-09 16:45] LABS: PRE OP POTASSIUM 3.3 MMOL/L (3.4-5.1)
[2018-01-10] VITALS (15 sets, daily range): BP systolic 108–151; BP diastolic 61–99
[~2018-01-10] VITALS: Ht 167.6 cm; Wt 110.0 kg
[~2018-01-10 12:53] MED LIST changes: -BENZ1TAB7 PO; +BUPR150T8 PO; -CLOZ200T12 PO; -HYDR-565 PO; -HYDR-569 PO; -METH-360 PO; -ONDA4TAB12 PO; -POLY17PO2 PO; +ZOLP5TAB2 PO; +cefazolin/dext.iso 2gm/100 ML IV ONE; +famotidine 20mg tablet PO ONE
[2018-01-10] MEDS ORDERED: TRAZ-218 PO (13:38)
[2018-01-10] MEDS: ringers solution, lacted 1,000 ML IV SCH ×2 (13:47→21:18)
[2018-01-10] MEDS ORDERED: ZOLP10TA PO (13:53)
[2018-01-10] MEDS ORDERED: BUSP30TA2 PO (13:56)
[2018-01-10] MEDS ORDERED: TOPI25TA49 PO (13:57)
[2018-01-10] MEDS ORDERED: PALI234D IM (14:04)
[2018-01-10] MEDS ORDERED: HYDR-4353 PO (14:05)
[2018-01-10] MEDS ORDERED: CLOZ100T31 PO (14:08)
[2018-01-10] MEDS ORDERED: ceFAZolin 1000mg inj ONE (14:19)
[2018-01-10] MEDS ORDERED: BUPIVAcaine/PF 2.5mg/ml (0.25%) 10ml vial ONE (14:19)
[2018-01-10 14:41] LABS: ISTAT HGB 11.6 g/dl (12.0-16.0); ISTAT IONIZED CALCIUM 1.26 mmol/L (1.03-1.32)
[2018-01-10] MEDS ORDERED: sevoflurane 250ml liquid IH ONE (15:25)
[2018-01-10] MEDS ORDERED: MIDAZolam 5mg/5ml vial ONE (15:27)
[2018-01-10] MEDS ORDERED: cloNIDine hcl/PF 100mcg/ml inj ONE (15:30)
[2018-01-10] MEDS ORDERED: fentaNYL /PF 50mcg/ml 5ml ampule ONE (15:30)
[2018-01-10] MEDS ORDERED: ROPIVAcaine 0.5% (5mg/ml) 30ml vial ONE (15:55)
[2018-01-10] MEDS ORDERED: dexamethasone sod phosphate 4mg/ml inj. ONE (15:55)
[2018-01-10] MEDS ORDERED: propofol inj 20 ML IV ONE (15:55)
[2018-01-10] MEDS ORDERED: ketamine 50mg/5ml syringe ONE (16:17)
[2018-01-10] MEDS ORDERED: ringers solution, lacted 1,000 ML IV SCH (16:46)
[2018-01-10] MEDS ORDERED: morphine 4 MG/ML inj SYRINge IV PRN ×2 (16:50)
[2018-01-10] MEDS ORDERED: proCHLORperazine 10 MG/2 ml inj IV PRN (16:50)
[2018-01-10] MEDS ORDERED: meperidine/PF 25mg/ml syringe IV PRN ×3 (16:50)
[2018-01-10] MEDS ORDERED: ondansetron/PF 4mg/2ml inj IV PRN (16:50)
[2018-01-10] MEDS ORDERED: ondansetron/PF 4mg/2ml inj ONE (17:06)
[2018-01-10] MEDS ORDERED: ketorolac trometh. 30mg/ml inj. ONE (17:06)
[2018-01-10] MEDS: HYDROcodone/acetaminophen 10/325mg tab PO PRN ×2 (18:19→22:55)
[2018-01-10] MEDS ORDERED: HYDROcodone/acetaminophen 10/325mg tab PO PRN (21:15)
[2018-01-10] MEDS ORDERED: oxcarbazepine 150mg tablet PO ONE (22:20)
[2018-01-10] MEDS ORDERED: clozapine 25mg tablet PO ONE (22:20)
[2018-01-10] MEDS ORDERED: traZODone 50mg tablet PO ONE (22:20)
[2018-01-10] MEDS ORDERED: clozapine 100mg tablet PO ONE (22:20)
[2018-01-10] MEDS ORDERED: topiramate 25mg tablet PO ONE (22:20)
[2018-01-10] MEDS: zolpidem 5mg tablet PO PRN (22:51)
[2018-01-11] MEDS: ceFAZolin 1GM/D5W- ADD-VANTAGE 50 ML IV SCH ×2 (01:23→08:53)
[2018-01-11 02:00] VITALS: BP 134/91
[2018-01-11] MEDS: HYDROcodone/acetaminophen 10/325mg tab PO PRN ×5 (02:32→20:06)
[2018-01-11 05:00] VITALS: BP 123/81
[2018-01-11] MEDS: buPROPion SR 150mg tablet PO SCH (08:50)
[2018-01-11] MEDS: oxcarbazepine 150mg tablet PO SCH ×2 (08:51→20:16)
[2018-01-11] MEDS: busPIRone 15mg tablet PO SCH ×2 (08:51→20:07)
[2018-01-11] MEDS: topiramate 25mg tablet PO SCH ×2 (08:52→20:07)
[2018-01-11] MEDS: venlafaxine XR 75mg capsule (Q24H) PO SCH (09:03)
[2018-01-11] MEDS: enoxaparin 40mg/0.4ml syringe SUBCUT SCH (09:48)
[2018-01-11 10:00] VITALS: BP 123/75
[2018-01-11 18:00] VITALS: BP 118/76
[2018-01-11] MEDS: zolpidem 5mg tablet PO PRN (20:06)
[2018-01-11] MEDS: clozapine 25mg tablet PO SCH (20:06)
[2018-01-11] MEDS: clozapine 100mg tablet PO SCH (20:07)
[2018-01-11] MEDS: traZODone 50mg tablet PO SCH (20:07)
[2018-01-11 22:00] VITALS: BP 108/68
[2018-01-12] MEDS: HYDROcodone/acetaminophen 10/325mg tab PO PRN ×4 (03:09→19:04)
[2018-01-12 06:40] VITALS: BP 121/73
[2018-01-12] MEDS: buPROPion SR 150mg tablet PO SCH (08:08)
[2018-01-12] MEDS: oxcarbazepine 150mg tablet PO SCH ×2 (08:09→20:38)
[2018-01-12] MEDS: busPIRone 15mg tablet PO SCH ×2 (08:10→20:38)
[2018-01-12] MEDS: venlafaxine XR 75mg capsule (Q24H) PO SCH (08:10)
[2018-01-12] MEDS: enoxaparin 40mg/0.4ml syringe SUBCUT SCH (08:11)
[2018-01-12] MEDS: topiramate 25mg tablet PO SCH ×2 (08:11→20:38)
[2018-01-12 10:00] VITALS: BP 131/79
[2018-01-12 18:00] VITALS: BP 112/68
[2018-01-12] MEDS: traZODone 50mg tablet PO SCH (20:37)
[2018-01-12] MEDS: clozapine 25mg tablet PO SCH (20:37)
[2018-01-12] MEDS: zolpidem 5mg tablet PO PRN (20:37)
[2018-01-12] MEDS: clozapine 100mg tablet PO SCH (20:38)
[2018-01-12 22:00] VITALS: BP 119/70
[2018-01-13] MEDS: HYDROcodone/acetaminophen 10/325mg tab PO PRN ×5 (05:07→21:26)
[2018-01-13 06:00] VITALS: BP 119/74
[2018-01-13] MEDS: busPIRone 15mg tablet PO SCH ×2 (09:42→20:03)
[2018-01-13] MEDS: venlafaxine XR 75mg capsule (Q24H) PO SCH (09:42)
[2018-01-13] MEDS: topiramate 25mg tablet PO SCH ×2 (09:43→20:03)
[2018-01-13] MEDS: oxcarbazepine 150mg tablet PO SCH ×2 (09:43→20:04)
[2018-01-13] MEDS: potassium chloride 10mEq ER tablet PO SCH (09:43)
[2018-01-13] MEDS: buPROPion SR 150mg tablet PO SCH (09:43)
[2018-01-13] MEDS: enoxaparin 40mg/0.4ml syringe SUBCUT SCH (09:44)
[2018-01-13 10:00] VITALS: BP 119/65
[2018-01-13 18:00] VITALS: BP 116/66
[2018-01-13] MEDS: traZODone 50mg tablet PO SCH (20:03)
[2018-01-13] MEDS: clozapine 100mg tablet PO SCH (20:04)
[2018-01-13] MEDS: clozapine 25mg tablet PO SCH (20:04)
[2018-01-13] MEDS: zolpidem 5mg tablet PO PRN (20:05)
[2018-01-13 22:00] VITALS: BP 98/59
[2018-01-14] MEDS: HYDROcodone/acetaminophen 10/325mg tab PO PRN ×5 (04:31→21:32)
[2018-01-14 06:00] VITALS: BP 123/69
[2018-01-14] MEDS: potassium chloride 10mEq ER tablet PO SCH (07:14)
[2018-01-14] MEDS: busPIRone 15mg tablet PO SCH ×2 (07:14→20:17)
[2018-01-14] MEDS: venlafaxine XR 75mg capsule (Q24H) PO SCH (07:14)
[2018-01-14] MEDS: buPROPion SR 150mg tablet PO SCH (07:14)
[2018-01-14] MEDS: oxcarbazepine 150mg tablet PO SCH ×2 (07:15→20:18)
[2018-01-14] MEDS: topiramate 25mg tablet PO SCH ×2 (07:15→20:18)
[2018-01-14] MEDS: enoxaparin 40mg/0.4ml syringe SUBCUT SCH (07:16)
[2018-01-14 10:00] VITALS: BP 120/69
[2018-01-14 18:00] VITALS: BP 117/62
[2018-01-14] MEDS: clozapine 100mg tablet PO SCH (20:18)
[2018-01-14] MEDS: clozapine 25mg tablet PO SCH (20:18)
[2018-01-14] MEDS: traZODone 50mg tablet PO SCH (20:19)
[2018-01-14] MEDS: zolpidem 5mg tablet PO PRN (20:30)
[2018-01-14 22:00] VITALS: BP 117/70
[2018-01-15] MEDS: HYDROcodone/acetaminophen 10/325mg tab PO PRN ×5 (02:51→20:47)
[2018-01-15 06:00] VITALS: BP 105/59
[2018-01-15] MEDS: busPIRone 15mg tablet PO SCH ×2 (08:14→20:48)
[2018-01-15] MEDS: topiramate 25mg tablet PO SCH ×2 (08:15→20:45)
[2018-01-15] MEDS: venlafaxine XR 75mg capsule (Q24H) PO SCH (08:15)
[2018-01-15] MEDS: oxcarbazepine 150mg tablet PO SCH ×2 (08:16→20:47)
[2018-01-15] MEDS: buPROPion SR 150mg tablet PO SCH (08:17)
[2018-01-15] MEDS: enoxaparin 40mg/0.4ml syringe SUBCUT SCH (08:26)
[2018-01-15 09:44] LABS: BASOPHILS % (AUTO) 0.3 % (0-1); EOSINOPHILS # (AUTO) 0.5 X10'3 (0-0.9); EOSINOPHILS % (AUTO) 3.6 % (0-6); HEMATOCRIT 33.8 % (35.0-45.0); LYMPHOCYTES # (AUTO) 1.6 X10'3 (1.1-4.8); LYMPHOCYTES % (AUTO) 12.1 % (21-51); MEAN CORPUSCULAR HGB CONC 32.5 % (33.0-36.5); MEAN CORPUSCULAR VOLUME 86.3 FL (78-98); MEAN PLATELET VOLUME 7.8 FL (7.4-10.4); MONOCYTES # (AUTO) 0.7 X10'3 (0-0.9); MONOCYTES % (AUTO) 5.2 % (2-12); NEUTROPHILS # (AUTO) 10.3 X10'3 (1.8-7.7); NEUTROPHILS % (AUTO) 78.8 % (42-75); PLATELET COUNT 455 X10'3 (140-440); RED BLOOD COUNT 3.92 X10'6 (4.20-5.60); RED CELL DISTRIBUTION WIDTH 15.5 % (11.5-14.5); WHITE BLOOD COUNT 13.1 X10'3 (4.5-11.0)
[2018-01-15 10:00] VITALS: BP 114/66
[2018-01-15 10:11] LABS: ALANINE AMINOTRANSFERASE 147 U/L (12-78); ALBUMIN/GLOBULIN RATIO 0.8 (1.1-1.5); ALKALINE PHOSPHATASE 240 IU/L (46-116); ANION GAP 8 (8-16); ASPARTATE AMINO TRANSFERASE 105 U/L (10-37); BILIRUBIN,TOTAL 0.2 MG/DL (0.1-1.0); BLOOD UREA NITROGEN 12 MG/DL (7-18); CHLORIDE 97 MMOL/L (99-107); GLUCOSE 151 MG/DL (70-104); SODIUM 132 MMOL/L (135-145); TOTAL CARBON DIOXIDE 27.4 MMOL/L (24-32); TOTAL PROTEIN 6.7 G/DL (6.4-8.2); eGFR 62 ML/MIN
[2018-01-15] MEDS: potassium chloride 10mEq ER tablet PO SCH (10:47)
[2018-01-15] MEDS: docusate sod 100mg capsule PO SCH ×2 (15:21→20:45)
[2018-01-15 18:00] VITALS: BP 110/60
[2018-01-15] MEDS: traZODone 50mg tablet PO SCH (20:46)
[2018-01-15] MEDS: clozapine 100mg tablet PO SCH (20:46)
[2018-01-15] MEDS: magnesium hydroxide 30ml (MOM) UD suspension PO PRN (20:48)
[2018-01-15] MEDS: zolpidem 5mg tablet PO PRN (20:48)
[2018-01-15] MEDS: clozapine 25mg tablet PO SCH (21:00)
[2018-01-15 22:00] VITALS: BP 106/48
[2018-01-15 22:21] VITALS: BP 106/48
[2018-01-16] MEDS: HYDROcodone/acetaminophen 10/325mg tab PO PRN ×5 (05:55→23:41)
[2018-01-16 06:00] VITALS: BP 113/56
[2018-01-16] MEDS: busPIRone 15mg tablet PO SCH ×2 (08:45→20:07)
[2018-01-16] MEDS: docusate sod 100mg capsule PO SCH ×2 (08:45→20:07)
[2018-01-16] MEDS: potassium chloride 10mEq ER tablet PO SCH (08:45)
[2018-01-16] MEDS: oxcarbazepine 150mg tablet PO SCH ×2 (08:45→20:08)
[2018-01-16] MEDS: topiramate 25mg tablet PO SCH ×2 (08:45→20:07)
[2018-01-16] MEDS: buPROPion SR 150mg tablet PO SCH (08:45)
[2018-01-16] MEDS: venlafaxine XR 75mg capsule (Q24H) PO SCH (08:45)
[2018-01-16] MEDS: enoxaparin 40mg/0.4ml syringe SUBCUT SCH (08:46)
[2018-01-16 10:00] VITALS: BP 107/53
[2018-01-16 18:00] VITALS: BP 136/68
[2018-01-16] MEDS: sennosides/docusate sodium tablet PO SCH (20:07)
[2018-01-16] MEDS: clozapine 25mg tablet PO SCH (20:08)
[2018-01-16] MEDS: traZODone 50mg tablet PO SCH (20:08)
[2018-01-16] MEDS: zolpidem 5mg tablet PO PRN (20:09)
[2018-01-16] MEDS: ondansetron 4mg rapidly disintigrating tab PO PRN (20:09)
[2018-01-16] MEDS: clozapine 100mg tablet PO SCH (21:00)
[2018-01-16 22:00] VITALS: BP 132/79
[2018-01-17 06:00] VITALS: BP 100/46
[2018-01-17] MEDS: buPROPion SR 150mg tablet PO SCH (08:39)
[2018-01-17] MEDS: docusate sod 100mg capsule PO SCH ×2 (08:39→21:05)
[2018-01-17] MEDS: HYDROcodone/acetaminophen 10/325mg tab PO PRN ×4 (08:39→22:01)
[2018-01-17] MEDS: busPIRone 15mg tablet PO SCH ×2 (08:39→21:05)
[2018-01-17] MEDS: oxcarbazepine 150mg tablet PO SCH ×2 (08:40→21:05)
[2018-01-17] MEDS: topiramate 25mg tablet PO SCH ×2 (08:40→21:05)
[2018-01-17] MEDS: venlafaxine XR 75mg capsule (Q24H) PO SCH (08:40)
[2018-01-17] MEDS: sennosides/docusate sodium tablet PO SCH ×2 (08:40→21:05)
[2018-01-17] MEDS: potassium chloride 10mEq ER tablet PO SCH (08:40)
[2018-01-17] MEDS: enoxaparin 40mg/0.4ml syringe SUBCUT SCH (08:40)
[2018-01-17 10:00] VITALS: BP 104/62
[2018-01-17 18:00] VITALS: BP 109/67
[2018-01-17] MEDS: clozapine 25mg tablet PO SCH (21:04)
[2018-01-17] MEDS: clozapine 100mg tablet PO SCH (21:04)
[2018-01-17] MEDS: zolpidem 5mg tablet PO PRN (21:05)
[2018-01-17] MEDS: traZODone 50mg tablet PO SCH (21:05)
[2018-01-17 22:00] VITALS: BP 96/52
[2018-01-17] MEDS: magnesium hydroxide 30ml (MOM) UD suspension PO PRN (22:00)
[2018-01-18 06:00] VITALS: BP 114/69
[2018-01-18] MEDS: topiramate 25mg tablet PO SCH ×2 (08:43→20:30)
[2018-01-18] MEDS: docusate sod 100mg capsule PO SCH ×2 (08:43→20:30)
[2018-01-18] MEDS: potassium chloride 10mEq ER tablet PO SCH (08:43)
[2018-01-18] MEDS: venlafaxine XR 75mg capsule (Q24H) PO SCH (08:43)
[2018-01-18] MEDS: sennosides/docusate sodium tablet PO SCH ×2 (08:43→20:30)
[2018-01-18] MEDS: busPIRone 15mg tablet PO SCH ×2 (08:43→20:30)
[2018-01-18] MEDS: enoxaparin 40mg/0.4ml syringe SUBCUT SCH (08:44)
[2018-01-18] MEDS: oxcarbazepine 150mg tablet PO SCH ×2 (08:44→20:30)
[2018-01-18] MEDS: buPROPion SR 150mg tablet PO SCH (08:44)
[2018-01-18] MEDS: HYDROcodone/acetaminophen 10/325mg tab PO PRN ×4 (08:45→20:37)
[2018-01-18] MEDS: ondansetron 4mg rapidly disintigrating tab PO PRN (08:45)
[2018-01-18 17:00] VITALS: BP 112/66
[2018-01-18] MEDS: traZODone 50mg tablet PO SCH (20:31)
[2018-01-18] MEDS: clozapine 25mg tablet PO SCH (20:31)
[2018-01-18] MEDS: clozapine 100mg tablet PO SCH (20:31)
[2018-01-18] MEDS: zolpidem 5mg tablet PO PRN (21:36)
[2018-01-18 22:00] VITALS: BP 102/50
[2018-01-19] MEDS: HYDROcodone/acetaminophen 10/325mg tab PO PRN ×6 (00:35→21:41)
[2018-01-19 07:00] VITALS: BP 118/56
[2018-01-19] MEDS: buPROPion SR 150mg tablet PO SCH (08:19)
[2018-01-19] MEDS: venlafaxine XR 75mg capsule (Q24H) PO SCH (08:20)
[2018-01-19] MEDS: busPIRone 15mg tablet PO SCH ×2 (08:20→20:26)
[2018-01-19] MEDS: topiramate 25mg tablet PO SCH ×2 (08:21→20:25)
[2018-01-19] MEDS: docusate sod 100mg capsule PO SCH ×2 (08:21→20:25)
[2018-01-19] MEDS: oxcarbazepine 150mg tablet PO SCH ×2 (08:21→20:26)
[2018-01-19] MEDS: sennosides/docusate sodium tablet PO SCH ×2 (08:21→20:25)
[2018-01-19] MEDS: potassium chloride 10mEq ER tablet PO SCH (08:22)
[2018-01-19] MEDS: enoxaparin 40mg/0.4ml syringe SUBCUT SCH (08:23)
[2018-01-19 11:00] VITALS: BP 81/63
[2018-01-19 11:30] VITALS: BP 108/65
[2018-01-19 18:00] VITALS: BP 101/51
[2018-01-19] MEDS: clozapine 25mg tablet PO SCH (20:25)
[2018-01-19] MEDS: traZODone 50mg tablet PO SCH (20:25)
[2018-01-19] MEDS: clozapine 100mg tablet PO SCH (20:25)
[2018-01-19] MEDS: zolpidem 5mg tablet PO PRN (20:29)
[2018-01-19 22:00] VITALS: BP 97/62
[2018-01-20] MEDS: HYDROcodone/acetaminophen 10/325mg tab PO PRN ×5 (03:21→22:51)
[2018-01-20 07:16] VITALS: BP 103/48
[2018-01-20] MEDS: buPROPion SR 150mg tablet PO SCH (08:22)
[2018-01-20] MEDS: enoxaparin 40mg/0.4ml syringe SUBCUT SCH (08:22)
[2018-01-20] MEDS: venlafaxine XR 75mg capsule (Q24H) PO SCH (08:23)
[2018-01-20] MEDS: docusate sod 100mg capsule PO SCH ×2 (08:23→20:08)
[2018-01-20] MEDS: sennosides/docusate sodium tablet PO SCH ×2 (08:23→20:08)
[2018-01-20] MEDS: potassium chloride 10mEq ER tablet PO SCH (08:23)
[2018-01-20] MEDS: busPIRone 15mg tablet PO SCH ×2 (08:23→20:09)
[2018-01-20] MEDS: topiramate 25mg tablet PO SCH ×2 (08:23→20:09)
[2018-01-20] MEDS: oxcarbazepine 150mg tablet PO SCH ×2 (08:24→20:08)
[2018-01-20 09:48] VITALS: BP 139/80
[2018-01-20 18:00] VITALS: BP 111/65
[2018-01-20] MEDS: clozapine 25mg tablet PO SCH (20:08)
[2018-01-20] MEDS: traZODone 50mg tablet PO SCH (20:08)
[2018-01-20] MEDS: clozapine 100mg tablet PO SCH (20:09)
[2018-01-20] MEDS: zolpidem 5mg tablet PO PRN (20:09)
[2018-01-20 22:00] VITALS: BP 103/59
[2018-01-21] MEDS: HYDROcodone/acetaminophen 10/325mg tab PO PRN ×5 (05:33→21:30)
[2018-01-21 06:00] VITALS: BP 92/42
[2018-01-21] MEDS: busPIRone 15mg tablet PO SCH ×2 (09:01→20:29)
[2018-01-21] MEDS: docusate sod 100mg capsule PO SCH ×2 (09:01→20:21)
[2018-01-21] MEDS: venlafaxine XR 75mg capsule (Q24H) PO SCH (09:01)
[2018-01-21] MEDS: sennosides/docusate sodium tablet PO SCH ×2 (09:02→20:20)
[2018-01-21] MEDS: potassium chloride 10mEq ER tablet PO SCH (09:02)
[2018-01-21] MEDS: buPROPion SR 150mg tablet PO SCH (09:03)
[2018-01-21] MEDS: topiramate 25mg tablet PO SCH ×2 (09:03→20:29)
[2018-01-21] MEDS: oxcarbazepine 150mg tablet PO SCH ×2 (09:03→20:21)
[2018-01-21] MEDS: enoxaparin 40mg/0.4ml syringe SUBCUT SCH (09:04)
[2018-01-21 10:00] VITALS: BP 118/61
[2018-01-21 18:00] VITALS: BP 113/61
[2018-01-21] MEDS: traZODone 50mg tablet PO SCH (20:22)
[2018-01-21] MEDS: clozapine 25mg tablet PO SCH (20:22)
[2018-01-21] MEDS: clozapine 100mg tablet PO SCH (20:22)
[2018-01-21 22:00] VITALS: BP 102/50
[2018-01-22] MEDS: HYDROcodone/acetaminophen 10/325mg tab PO PRN ×5 (01:59→20:09)
[2018-01-22 06:00] VITALS: BP 97/41
[2018-01-22] MEDS: sennosides/docusate sodium tablet PO SCH ×2 (07:50→20:07)
[2018-01-22] MEDS: docusate sod 100mg capsule PO SCH ×2 (07:50→20:07)
[2018-01-22] MEDS: enoxaparin 40mg/0.4ml syringe SUBCUT SCH (07:50)
[2018-01-22] MEDS: venlafaxine XR 75mg capsule (Q24H) PO SCH (07:51)
[2018-01-22] MEDS: busPIRone 15mg tablet PO SCH ×2 (07:51→20:08)
[2018-01-22] MEDS: potassium chloride 10mEq ER tablet PO SCH (07:51)
[2018-01-22] MEDS: topiramate 25mg tablet PO SCH ×2 (07:51→20:08)
[2018-01-22] MEDS: buPROPion SR 150mg tablet PO SCH (07:51)
[2018-01-22] MEDS: oxcarbazepine 150mg tablet PO SCH ×2 (07:51→20:08)
[2018-01-22 18:12] VITALS: BP 120/71
[2018-01-22] MEDS: traZODone 50mg tablet PO SCH (20:08)
[2018-01-22] MEDS: zolpidem 5mg tablet PO PRN (20:08)
[2018-01-22] MEDS: clozapine 25mg tablet PO SCH (20:08)
[2018-01-22] MEDS: clozapine 100mg tablet PO SCH (20:08)
[2018-01-22 21:40] VITALS: BP 96/42
[2018-01-23] MEDS: HYDROcodone/acetaminophen 10/325mg tab PO PRN ×5 (01:57→21:02)
[2018-01-23 06:00] VITALS: BP 106/56
[2018-01-23] MEDS: busPIRone 15mg tablet PO SCH ×2 (08:00→21:02)
[2018-01-23] MEDS: oxcarbazepine 150mg tablet PO SCH ×2 (08:01→21:01)
[2018-01-23] MEDS: docusate sod 100mg capsule PO SCH ×2 (08:03→21:01)
[2018-01-23] MEDS: sennosides/docusate sodium tablet PO SCH ×2 (08:03→21:02)
[2018-01-23] MEDS: buPROPion SR 150mg tablet PO SCH (08:03)
[2018-01-23] MEDS: venlafaxine XR 75mg capsule (Q24H) PO SCH (08:04)
[2018-01-23] MEDS: potassium chloride 10mEq ER tablet PO SCH (08:05)
[2018-01-23] MEDS: topiramate 25mg tablet PO SCH ×2 (08:05→21:01)
[2018-01-23] MEDS: enoxaparin 40mg/0.4ml syringe SUBCUT SCH (08:07)
[2018-01-23 10:00] VITALS: BP 99/59
[2018-01-23 18:03] VITALS: BP 97/46
[2018-01-23] MEDS: traZODone 50mg tablet PO SCH (21:01)
[2018-01-23] MEDS: zolpidem 5mg tablet PO PRN (21:01)
[2018-01-23] MEDS: clozapine 25mg tablet PO SCH (21:01)
[2018-01-23] MEDS: clozapine 100mg tablet PO SCH (21:01)
[2018-01-23 22:00] VITALS: BP 120/61
[2018-01-24] MEDS: HYDROcodone/acetaminophen 10/325mg tab PO PRN ×5 (03:02→20:19)
[2018-01-24 06:00] VITALS: BP 107/62
[2018-01-24] MEDS: docusate sod 100mg capsule PO SCH ×2 (07:49→20:18)
[2018-01-24] MEDS: busPIRone 15mg tablet PO SCH ×2 (07:49→20:18)
[2018-01-24] MEDS: buPROPion SR 150mg tablet PO SCH (07:49)
[2018-01-24] MEDS: venlafaxine XR 75mg capsule (Q24H) PO SCH (07:49)
[2018-01-24] MEDS: potassium chloride 10mEq ER tablet PO SCH (07:49)
[2018-01-24] MEDS: sennosides/docusate sodium tablet PO SCH ×2 (07:49→20:18)
[2018-01-24] MEDS: oxcarbazepine 150mg tablet PO SCH ×2 (07:50→20:18)
[2018-01-24] MEDS: topiramate 25mg tablet PO SCH ×2 (07:50→20:18)
[2018-01-24] MEDS: enoxaparin 40mg/0.4ml syringe SUBCUT SCH (07:50)
[2018-01-24 10:00] VITALS: BP 108/54
[2018-01-24 18:26] VITALS: BP 118/72
[2018-01-24] MEDS: traZODone 50mg tablet PO SCH (20:18)
[2018-01-24] MEDS: clozapine 100mg tablet PO SCH (20:18)
[2018-01-24] MEDS: clozapine 25mg tablet PO SCH (20:18)
[2018-01-24] MEDS: zolpidem 5mg tablet PO PRN (20:18)
[2018-01-24 22:00] VITALS: BP 119/73
[2018-01-25] MEDS: HYDROcodone/acetaminophen 10/325mg tab PO PRN ×6 (00:23→21:02)
[2018-01-25 05:53] LABS: BASOPHILS % (AUTO) 0.6 % (0-1); EOSINOPHILS # (AUTO) 0.4 X10'3 (0-0.9); EOSINOPHILS % (AUTO) 5.3 % (0-6); HEMATOCRIT 32.9 % (35.0-45.0); HEMOGLOBIN 10.9 g/dl (12.0-16.0); LYMPHOCYTES # (AUTO) 2.6 X10'3 (1.1-4.8); LYMPHOCYTES % (AUTO) 38.8 % (21-51); MEAN CORPUSCULAR HEMOGLOBIN 28.4 PG (27.0-31.0); MEAN CORPUSCULAR HGB CONC 33.1 % (33.0-36.5); MEAN CORPUSCULAR VOLUME 85.8 FL (78-98); MEAN PLATELET VOLUME 7.8 FL (7.4-10.4); MONOCYTES # (AUTO) 0.4 X10'3 (0-0.9); MONOCYTES % (AUTO) 6.6 % (2-12); NEUTROPHILS # (AUTO) 3.2 X10'3 (1.8-7.7); NEUTROPHILS % (AUTO) 48.7 % (42-75); PLATELET COUNT 335 X10'3 (140-440); RED BLOOD COUNT 3.84 X10'6 (4.20-5.60); RED CELL DISTRIBUTION WIDTH 15.9 % (11.5-14.5); WHITE BLOOD COUNT 6.6 X10'3 (4.5-11.0)
[2018-01-25 06:00] VITALS: BP 120/69
[2018-01-25 06:15] LABS: ALANINE AMINOTRANSFERASE 95 U/L (12-78); ALBUMIN 3.1 G/DL (3.4-5.0); ALBUMIN/GLOBULIN RATIO 0.9 (1.1-1.5); ALKALINE PHOSPHATASE 228 IU/L (46-116); ANION GAP 9 (8-16); ASPARTATE AMINO TRANSFERASE 58 U/L (10-37); BILIRUBIN,TOTAL 0.1 MG/DL (0.1-1.0); BLOOD UREA NITROGEN 12 MG/DL (7-18); BUN/CREATININE RATIO 13.2 (6.6-38.0); CHLORIDE 97 MMOL/L (99-107); CREATININE 0.91 MG/DL (0.40-0.90); GLUCOSE 88 MG/DL (70-104); POTASSIUM 4.1 MMOL/L (3.5-5.1); SODIUM 133 MMOL/L (135-145); TOTAL CARBON DIOXIDE 27.5 MMOL/L (24-32); TOTAL PROTEIN 6.4 G/DL (6.4-8.2); eGFR 69 ML/MIN
[2018-01-25] MEDS: busPIRone 15mg tablet PO SCH ×2 (07:47→20:10)
[2018-01-25] MEDS: potassium chloride 10mEq ER tablet PO SCH (07:48)
[2018-01-25] MEDS: docusate sod 100mg capsule PO SCH ×2 (07:48→20:11)
[2018-01-25] MEDS: topiramate 25mg tablet PO SCH ×2 (07:48→20:11)
[2018-01-25] MEDS: oxcarbazepine 150mg tablet PO SCH ×2 (07:48→20:10)
[2018-01-25] MEDS: sennosides/docusate sodium tablet PO SCH ×2 (07:48→20:10)
[2018-01-25] MEDS: venlafaxine XR 75mg capsule (Q24H) PO SCH (07:48)
[2018-01-25] MEDS: enoxaparin 40mg/0.4ml syringe SUBCUT SCH (07:49)
[2018-01-25] MEDS: buPROPion SR 150mg tablet PO SCH (07:49)
[2018-01-25 10:00] VITALS: BP 112/68
[2018-01-25 18:00] VITALS: BP 122/69
[2018-01-25] MEDS: traZODone 50mg tablet PO SCH (20:10)
[2018-01-25] MEDS: clozapine 25mg tablet PO SCH (20:11)
[2018-01-25] MEDS: clozapine 100mg tablet PO SCH (20:11)
[2018-01-25] MEDS: zolpidem 5mg tablet PO PRN (20:12)
[2018-01-25 22:00] VITALS: BP 109/59
[2018-01-26] MEDS: HYDROcodone/acetaminophen 10/325mg tab PO PRN ×6 (01:36→21:28)
[2018-01-26 06:00] VITALS: BP 110/64
[2018-01-26] MEDS: oxcarbazepine 150mg tablet PO SCH ×2 (08:12→20:03)
[2018-01-26] MEDS: docusate sod 100mg capsule PO SCH ×2 (08:12→20:03)
[2018-01-26] MEDS: busPIRone 15mg tablet PO SCH ×2 (08:12→20:03)
[2018-01-26] MEDS: topiramate 25mg tablet PO SCH ×2 (08:12→20:03)
[2018-01-26] MEDS: sennosides/docusate sodium tablet PO SCH ×2 (08:12→20:03)
[2018-01-26] MEDS: potassium chloride 10mEq ER tablet PO SCH (08:12)
[2018-01-26] MEDS: venlafaxine XR 75mg capsule (Q24H) PO SCH (08:12)
[2018-01-26] MEDS: buPROPion SR 150mg tablet PO SCH (08:12)
[2018-01-26] MEDS: enoxaparin 40mg/0.4ml syringe SUBCUT SCH (08:13)
[2018-01-26 10:00] VITALS: BP 103/52
[2018-01-26 18:00] VITALS: BP 135/60
[2018-01-26] MEDS: zolpidem 5mg tablet PO PRN (20:02)
[2018-01-26] MEDS: clozapine 100mg tablet PO SCH (20:02)
[2018-01-26] MEDS: clozapine 25mg tablet PO SCH (20:03)
[2018-01-26] MEDS: traZODone 50mg tablet PO SCH (20:03)
[2018-01-26 22:04] VITALS: BP 102/60
[2018-01-27] MEDS: HYDROcodone/acetaminophen 10/325mg tab PO PRN ×4 (03:43→18:52)
[2018-01-27 06:00] VITALS: BP 111/57
[2018-01-27] MEDS: busPIRone 15mg tablet PO SCH ×2 (08:58→20:10)
[2018-01-27] MEDS: enoxaparin 40mg/0.4ml syringe SUBCUT SCH (08:58)
[2018-01-27] MEDS: oxcarbazepine 150mg tablet PO SCH ×2 (08:59→20:09)
[2018-01-27] MEDS: topiramate 25mg tablet PO SCH ×2 (08:59→20:10)
[2018-01-27] MEDS: docusate sod 100mg capsule PO SCH ×2 (08:59→20:10)
[2018-01-27] MEDS: sennosides/docusate sodium tablet PO SCH ×2 (08:59→20:10)
[2018-01-27] MEDS: buPROPion SR 150mg tablet PO SCH (09:00)
[2018-01-27] MEDS: potassium chloride 10mEq ER tablet PO SCH (09:00)
[2018-01-27] MEDS: venlafaxine XR 75mg capsule (Q24H) PO SCH (09:00)
[2018-01-27 10:00] VITALS: BP 115/58
[2018-01-27 18:00] VITALS: BP 118/72
[2018-01-27] MEDS: clozapine 25mg tablet PO SCH (20:09)
[2018-01-27] MEDS: clozapine 100mg tablet PO SCH (20:09)
[2018-01-27] MEDS: zolpidem 5mg tablet PO PRN (20:10)
[2018-01-27] MEDS: traZODone 50mg tablet PO SCH (20:10)
[2018-01-27 22:00] VITALS: BP 90/56
[2018-01-28] MEDS: HYDROcodone/acetaminophen 10/325mg tab PO PRN ×4 (03:32→18:52)
[2018-01-28 06:00] VITALS: BP 95/60
[2018-01-28] MEDS: topiramate 25mg tablet PO SCH ×2 (08:45→20:08)
[2018-01-28] MEDS: buPROPion SR 150mg tablet PO SCH (08:45)
[2018-01-28] MEDS: oxcarbazepine 150mg tablet PO SCH ×2 (08:46→20:08)
[2018-01-28] MEDS: potassium chloride 10mEq ER tablet PO SCH (08:46)
[2018-01-28] MEDS: busPIRone 15mg tablet PO SCH ×2 (08:46→20:08)
[2018-01-28] MEDS: venlafaxine XR 75mg capsule (Q24H) PO SCH (08:48)
[2018-01-28] MEDS: docusate sod 100mg capsule PO SCH ×2 (08:48→20:08)
[2018-01-28] MEDS: sennosides/docusate sodium tablet PO SCH ×2 (08:48→20:08)
[2018-01-28] MEDS: enoxaparin 40mg/0.4ml syringe SUBCUT SCH (08:49)
[2018-01-28 10:00] VITALS: BP 99/43
[2018-01-28 18:00] VITALS: BP 91/49
[2018-01-28] MEDS: clozapine 25mg tablet PO SCH (20:08)
[2018-01-28] MEDS: traZODone 50mg tablet PO SCH (20:08)
[2018-01-28] MEDS: clozapine 100mg tablet PO SCH (20:08)
[2018-01-28] MEDS: zolpidem 5mg tablet PO PRN (20:08)
[2018-01-28 22:00] VITALS: BP 88/53
[2018-01-29] MEDS: HYDROcodone/acetaminophen 10/325mg tab PO PRN ×5 (03:15→21:13)
[2018-01-29 06:00] VITALS: BP 88/51
[2018-01-29] MEDS: busPIRone 15mg tablet PO SCH ×2 (07:13→20:11)
[2018-01-29] MEDS: buPROPion SR 150mg tablet PO SCH (07:13)
[2018-01-29] MEDS: oxcarbazepine 150mg tablet PO SCH ×2 (07:14→20:10)
[2018-01-29] MEDS: potassium chloride 10mEq ER tablet PO SCH (07:15)
[2018-01-29] MEDS: sennosides/docusate sodium tablet PO SCH ×2 (07:15→20:11)
[2018-01-29] MEDS: venlafaxine XR 75mg capsule (Q24H) PO SCH (07:15)
[2018-01-29] MEDS: topiramate 25mg tablet PO SCH ×2 (07:15→20:11)
[2018-01-29] MEDS: docusate sod 100mg capsule PO SCH ×2 (07:16→20:10)
[2018-01-29] MEDS: enoxaparin 40mg/0.4ml syringe SUBCUT SCH (07:17)
[2018-01-29 10:00] VITALS: BP 104/56
[2018-01-29 18:30] VITALS: BP 116/62
[2018-01-29] MEDS: traZODone 50mg tablet PO SCH (20:10)
[2018-01-29] MEDS: zolpidem 5mg tablet PO PRN (20:13)
[2018-01-29] MEDS: clozapine 100mg tablet PO SCH (20:13)
[2018-01-29] MEDS: clozapine 25mg tablet PO SCH (20:13)
[2018-01-29 22:04] VITALS: BP 98/47
[2018-01-30] MEDS: HYDROcodone/acetaminophen 10/325mg tab PO PRN ×5 (03:02→20:41)
[2018-01-30 06:00] VITALS: BP 99/43
[2018-01-30] MEDS: busPIRone 15mg tablet PO SCH ×2 (07:18→20:43)
[2018-01-30] MEDS: buPROPion SR 150mg tablet PO SCH (07:18)
[2018-01-30] MEDS: oxcarbazepine 150mg tablet PO SCH ×2 (07:19→20:43)
[2018-01-30] MEDS: topiramate 25mg tablet PO SCH ×2 (07:20→20:43)
[2018-01-30] MEDS: venlafaxine XR 75mg capsule (Q24H) PO SCH (07:20)
[2018-01-30] MEDS: docusate sod 100mg capsule PO SCH ×2 (07:20→20:43)
[2018-01-30] MEDS: potassium chloride 10mEq ER tablet PO SCH (07:21)
[2018-01-30] MEDS: sennosides/docusate sodium tablet PO SCH ×2 (07:21→20:43)
[2018-01-30] MEDS: enoxaparin 40mg/0.4ml syringe SUBCUT SCH (07:24)
[2018-01-30 10:00] VITALS: BP 98/54
[2018-01-30 18:00] VITALS: BP 99/43
[2018-01-30] MEDS: clozapine 100mg tablet PO SCH (20:44)
[2018-01-30] MEDS: traZODone 50mg tablet PO SCH (20:45)
[2018-01-30] MEDS: clozapine 25mg tablet PO SCH (20:46)
[2018-01-30] MEDS: zolpidem 5mg tablet PO PRN (20:48)
[2018-01-30 22:00] VITALS: BP 113/69
[2018-01-31] MEDS: HYDROcodone/acetaminophen 10/325mg tab PO PRN ×5 (00:54→19:30)
[2018-01-31 06:45] VITALS: BP 121/48
[2018-01-31] MEDS: busPIRone 15mg tablet PO SCH ×2 (07:29→20:56)
[2018-01-31] MEDS: sennosides/docusate sodium tablet PO SCH ×2 (07:29→20:58)
[2018-01-31] MEDS: docusate sod 100mg capsule PO SCH ×2 (07:29→20:57)
[2018-01-31] MEDS: potassium chloride 10mEq ER tablet PO SCH (07:29)
[2018-01-31] MEDS: oxcarbazepine 150mg tablet PO SCH ×2 (07:29→20:59)
[2018-01-31] MEDS: enoxaparin 40mg/0.4ml syringe SUBCUT SCH (07:29)
[2018-01-31] MEDS: topiramate 25mg tablet PO SCH ×2 (07:29→20:58)
[2018-01-31] MEDS: venlafaxine XR 75mg capsule (Q24H) PO SCH (07:29)
[2018-01-31] MEDS: buPROPion SR 150mg tablet PO SCH (07:29)
[2018-01-31 10:26] VITALS: BP 115/66
[2018-01-31 18:00] VITALS: BP 142/88
[2018-01-31] MEDS: clozapine 100mg tablet PO SCH (21:00)
[2018-01-31] MEDS: traZODone 50mg tablet PO SCH (21:01)
[2018-01-31] MEDS: clozapine 25mg tablet PO SCH (21:01)
[2018-01-31] MEDS: zolpidem 5mg tablet PO PRN (21:06)
[2018-01-31 22:00] VITALS: BP 106/57
[2018-02-01] MEDS: HYDROcodone/acetaminophen 10/325mg tab PO PRN ×5 (00:18→17:48)
[2018-02-01 06:00] VITALS: BP 138/75
[2018-02-01] MEDS: enoxaparin 40mg/0.4ml syringe SUBCUT SCH (08:06)
[2018-02-01] MEDS: venlafaxine XR 75mg capsule (Q24H) PO SCH (08:07)
[2018-02-01] MEDS: docusate sod 100mg capsule PO SCH ×2 (08:07→20:43)
[2018-02-01] MEDS: busPIRone 15mg tablet PO SCH ×2 (08:07→20:43)
[2018-02-01] MEDS: topiramate 25mg tablet PO SCH ×2 (08:08→20:44)
[2018-02-01] MEDS: sennosides/docusate sodium tablet PO SCH ×2 (08:08→20:43)
[2018-02-01] MEDS: potassium chloride 10mEq ER tablet PO SCH (08:08)
[2018-02-01] MEDS: buPROPion SR 150mg tablet PO SCH (08:08)
[2018-02-01] MEDS: oxcarbazepine 150mg tablet PO SCH ×2 (08:09→20:45)
[2018-02-01 10:00] VITALS: BP 99/65
[2018-02-01 18:00] VITALS: BP 98/53
[2018-02-01] MEDS: traZODone 50mg tablet PO SCH (20:44)
[2018-02-01] MEDS: zolpidem 5mg tablet PO PRN (20:44)
[2018-02-01] MEDS: clozapine 100mg tablet PO SCH (20:46)
[2018-02-01] MEDS: clozapine 25mg tablet PO SCH (20:46)
[2018-02-01 22:00] VITALS: BP 93/59
[2018-02-02] MEDS: HYDROcodone/acetaminophen 10/325mg tab PO PRN ×3 (03:25→14:26)
[2018-02-02 06:47] VITALS: BP 102/60
[2018-02-02] MEDS: enoxaparin 40mg/0.4ml syringe SUBCUT SCH (07:44)
[2018-02-02] MEDS: venlafaxine XR 75mg capsule (Q24H) PO SCH (07:45)
[2018-02-02] MEDS: busPIRone 15mg tablet PO SCH ×2 (07:45→20:07)
[2018-02-02] MEDS: sennosides/docusate sodium tablet PO SCH ×2 (07:45→20:07)
[2018-02-02] MEDS: docusate sod 100mg capsule PO SCH ×2 (07:46→20:07)
[2018-02-02] MEDS: buPROPion SR 150mg tablet PO SCH (07:46)
[2018-02-02] MEDS: potassium chloride 10mEq ER tablet PO SCH (07:46)
[2018-02-02] MEDS: oxcarbazepine 150mg tablet PO SCH ×2 (07:47→20:07)
[2018-02-02] MEDS: topiramate 25mg tablet PO SCH ×2 (07:53→20:07)
[2018-02-02 10:00] VITALS: BP 108/52
[2018-02-02 18:00] VITALS: BP 110/65
[2018-02-02] MEDS: clozapine 25mg tablet PO SCH (20:06)
[2018-02-02] MEDS: clozapine 100mg tablet PO SCH (20:06)
[2018-02-02] MEDS: zolpidem 5mg tablet PO PRN (20:07)
[2018-02-02] MEDS: oxyCODONE SR 10mg (sust. release) tab PO SCH (20:07)
[2018-02-02] MEDS: traZODone 50mg tablet PO SCH (20:07)
[2018-02-02 22:00] VITALS: BP 101/58
[2018-02-03 06:00] VITALS: BP 96/61
[2018-02-03 06:41] LABS: BASOPHILS % (AUTO) 0.3 % (0-1); EOSINOPHILS # (AUTO) 0.5 X10'3 (0-0.9); EOSINOPHILS % (AUTO) 5.1 % (0-6); HEMATOCRIT 35.1 % (35.0-45.0); HEMOGLOBIN 11.4 g/dl (12.0-16.0); LYMPHOCYTES % (AUTO) 21.1 % (21-51); MEAN CORPUSCULAR HGB CONC 32.5 % (33.0-36.5); MEAN CORPUSCULAR VOLUME 86.2 FL (78-98); MEAN PLATELET VOLUME 7.9 FL (7.4-10.4); MONOCYTES # (AUTO) 0.6 X10'3 (0-0.9); MONOCYTES % (AUTO) 6.2 % (2-12); NEUTROPHILS # (AUTO) 6.3 X10'3 (1.8-7.7); NEUTROPHILS % (AUTO) 67.3 % (42-75); PLATELET COUNT 402 X10'3 (140-440); RED BLOOD COUNT 4.07 X10'6 (4.20-5.60); RED CELL DISTRIBUTION WIDTH 15.6 % (11.5-14.5); WHITE BLOOD COUNT 9.4 X10'3 (4.5-11.0)
[2018-02-03] MEDS: venlafaxine XR 75mg capsule (Q24H) PO SCH (07:33)
[2018-02-03] MEDS: sennosides/docusate sodium tablet PO SCH ×2 (07:34→20:00)
[2018-02-03] MEDS: oxyCODONE SR 10mg (sust. release) tab PO SCH ×2 (07:34→20:47)
[2018-02-03] MEDS: docusate sod 100mg capsule PO SCH ×2 (07:34→20:00)
[2018-02-03] MEDS: potassium chloride 10mEq ER tablet PO SCH (07:34)
[2018-02-03] MEDS: topiramate 25mg tablet PO SCH ×2 (07:35→20:47)
[2018-02-03] MEDS: oxcarbazepine 150mg tablet PO SCH ×2 (07:35→20:47)
[2018-02-03] MEDS: busPIRone 15mg tablet PO SCH ×2 (07:35→20:46)
[2018-02-03] MEDS: buPROPion SR 150mg tablet PO SCH (07:36)
[2018-02-03] MEDS: enoxaparin 40mg/0.4ml syringe SUBCUT SCH (07:36)
[2018-02-03] MEDS ORDERED: paliperidone palmitate inj 234 MG/1.5 ML SYRINGE IM SCH (08:00)
[2018-02-03 10:00] VITALS: BP 135/81
[2018-02-03] MEDS: HYDROcodone/acetaminophen 10/325mg tab PO PRN (17:18)
[2018-02-03 18:00] VITALS: BP 116/78
[2018-02-03] MEDS: clozapine 25mg tablet PO SCH (20:48)
[2018-02-03] MEDS: traZODone 50mg tablet PO SCH (20:48)
[2018-02-03] MEDS: clozapine 100mg tablet PO SCH (20:48)
[2018-02-03] MEDS: zolpidem 5mg tablet PO PRN (20:57)
[2018-02-03 22:00] VITALS: BP 103/55
[2018-02-04 06:00] VITALS: BP 110/67
[2018-02-04] MEDS: docusate sod 100mg capsule PO SCH ×2 (08:15→20:00)
[2018-02-04] MEDS: oxyCODONE SR 10mg (sust. release) tab PO SCH ×2 (08:16→20:11)
[2018-02-04] MEDS: sennosides/docusate sodium tablet PO SCH ×2 (08:16→20:00)
[2018-02-04] MEDS: buPROPion SR 150mg tablet PO SCH (08:16)
[2018-02-04] MEDS: potassium chloride 10mEq ER tablet PO SCH (08:16)
[2018-02-04] MEDS: venlafaxine XR 75mg capsule (Q24H) PO SCH (08:16)
[2018-02-04] MEDS: enoxaparin 40mg/0.4ml syringe SUBCUT SCH (08:16)
[2018-02-04] MEDS: topiramate 25mg tablet PO SCH ×2 (08:16→20:13)
[2018-02-04] MEDS: oxcarbazepine 150mg tablet PO SCH ×2 (08:17→20:12)
[2018-02-04] MEDS: busPIRone 15mg tablet PO SCH (08:22)
[2018-02-04] MEDS: HYDROcodone/acetaminophen 10/325mg tab PO PRN (14:26)
[2018-02-04] MEDS: clozapine 100mg tablet PO SCH (20:12)
[2018-02-04] MEDS: clozapine 25mg tablet PO SCH (20:13)
[2018-02-04] MEDS: traZODone 50mg tablet PO SCH (20:13)
[2018-02-04] MEDS ORDERED: busPIRone 5mg tablet PO SCH (20:18)
[2018-02-04] MEDS: zolpidem 5mg tablet PO PRN (21:12)
[2018-02-04] MEDS: busPIRone 5mg tablet PO SCH (22:43)
[2018-02-05 06:00] VITALS: BP 102/58
[2018-02-05] MEDS: busPIRone 5mg tablet PO SCH ×2 (08:53→20:11)
[2018-02-05] MEDS: docusate sod 100mg capsule PO SCH ×2 (08:55→20:11)
[2018-02-05] MEDS: potassium chloride 10mEq ER tablet PO SCH (08:56)
[2018-02-05] MEDS: oxyCODONE SR 10mg (sust. release) tab PO SCH ×2 (08:56→20:12)
[2018-02-05] MEDS: venlafaxine XR 75mg capsule (Q24H) PO SCH (08:56)
[2018-02-05] MEDS: oxcarbazepine 150mg tablet PO SCH ×2 (08:57→20:11)
[2018-02-05] MEDS: topiramate 25mg tablet PO SCH ×2 (08:57→20:11)
[2018-02-05] MEDS: sennosides/docusate sodium tablet PO SCH ×2 (08:57→20:11)
[2018-02-05] MEDS: buPROPion SR 150mg tablet PO SCH (08:57)
[2018-02-05] MEDS: enoxaparin 40mg/0.4ml syringe SUBCUT SCH (08:58)
[2018-02-05 10:30] VITALS: BP 115/63
[2018-02-05] MEDS: HYDROcodone/acetaminophen 10/325mg tab PO PRN (14:11)
[2018-02-05 18:00] VITALS: BP 131/76
[2018-02-05] MEDS: clozapine 25mg tablet PO SCH (20:11)
[2018-02-05] MEDS: clozapine 100mg tablet PO SCH (20:11)
[2018-02-05] MEDS: traZODone 50mg tablet PO SCH (20:11)
[2018-02-05] MEDS: zolpidem 5mg tablet PO PRN (20:12)
[2018-02-05 22:00] VITALS: BP 96/47
[2018-02-06] MEDS: HYDROcodone/acetaminophen 10/325mg tab PO PRN ×2 (03:58→16:56)
[2018-02-06 06:00] VITALS: BP 101/60
[2018-02-06 10:00] VITALS: BP 106/66
[2018-02-06] MEDS: busPIRone 5mg tablet PO SCH ×2 (10:15→20:13)
[2018-02-06] MEDS: topiramate 25mg tablet PO SCH ×2 (10:18→20:13)
[2018-02-06] MEDS: sennosides/docusate sodium tablet PO SCH ×2 (10:18→20:00)
[2018-02-06] MEDS: docusate sod 100mg capsule PO SCH ×2 (10:18→20:00)
[2018-02-06] MEDS: potassium chloride 10mEq ER tablet PO SCH (10:19)
[2018-02-06] MEDS: oxcarbazepine 150mg tablet PO SCH ×2 (10:19→20:13)
[2018-02-06] MEDS: oxyCODONE SR 10mg (sust. release) tab PO SCH ×2 (10:19→20:12)
[2018-02-06] MEDS: venlafaxine XR 75mg capsule (Q24H) PO SCH (10:20)
[2018-02-06] MEDS: enoxaparin 40mg/0.4ml syringe SUBCUT SCH (10:21)
[2018-02-06] MEDS: buPROPion SR 150mg tablet PO SCH (10:22)
[2018-02-06 20:00] VITALS: BP 113/57
[2018-02-06] MEDS: clozapine 100mg tablet PO SCH (20:11)
[2018-02-06] MEDS: clozapine 25mg tablet PO SCH (20:11)
[2018-02-06] MEDS: traZODone 50mg tablet PO SCH (20:13)
[2018-02-06] MEDS: zolpidem 5mg tablet PO PRN (20:13)
[2018-02-07] VITALS: BP 103/40
[2018-02-07] MEDS: HYDROcodone/acetaminophen 10/325mg tab PO PRN ×3 (02:04→19:16)
[2018-02-07 06:00] VITALS: BP 108/56
[2018-02-07] MEDS: busPIRone 5mg tablet PO SCH ×2 (09:54→20:06)
[2018-02-07] MEDS: docusate sod 100mg capsule PO SCH ×2 (09:55→20:00)
[2018-02-07] MEDS: potassium chloride 10mEq ER tablet PO SCH (09:56)
[2018-02-07] MEDS: venlafaxine XR 75mg capsule (Q24H) PO SCH (09:56)
[2018-02-07] MEDS: sennosides/docusate sodium tablet PO SCH ×2 (09:57→20:00)
[2018-02-07] MEDS: oxyCODONE SR 10mg (sust. release) tab PO SCH ×2 (09:57→20:06)
[2018-02-07] MEDS: oxcarbazepine 150mg tablet PO SCH ×2 (09:58→20:07)
[2018-02-07] MEDS: topiramate 25mg tablet PO SCH ×2 (09:58→20:07)
[2018-02-07] MEDS: buPROPion SR 150mg tablet PO SCH (09:59)
[2018-02-07] MEDS: enoxaparin 40mg/0.4ml syringe SUBCUT SCH (10:00)
[2018-02-07 18:00] VITALS: BP 121/73
[2018-02-07] MEDS: clozapine 25mg tablet PO SCH (20:07)
[2018-02-07] MEDS: clozapine 100mg tablet PO SCH (20:07)
[2018-02-07] MEDS: traZODone 50mg tablet PO SCH (20:08)
[2018-02-07] MEDS: zolpidem 5mg tablet PO PRN (20:17)
[2018-02-07 22:00] VITALS: BP 104/61
[2018-02-08] MEDS: HYDROcodone/acetaminophen 10/325mg tab PO PRN ×2 (03:42→13:14)
[2018-02-08 06:00] VITALS: BP 99/54
[2018-02-08] MEDS: busPIRone 5mg tablet PO SCH ×2 (08:05→20:07)
[2018-02-08] MEDS: docusate sod 100mg capsule PO SCH ×2 (08:06→20:00)
[2018-02-08] MEDS: venlafaxine XR 75mg capsule (Q24H) PO SCH (08:06)
[2018-02-08] MEDS: oxcarbazepine 150mg tablet PO SCH ×2 (08:06→20:07)
[2018-02-08] MEDS: sennosides/docusate sodium tablet PO SCH ×2 (08:07→20:00)
[2018-02-08] MEDS: potassium chloride 10mEq ER tablet PO SCH (08:07)
[2018-02-08] MEDS: topiramate 25mg tablet PO SCH ×2 (08:07→20:06)
[2018-02-08] MEDS: buPROPion SR 150mg tablet PO SCH (08:07)
[2018-02-08] MEDS: oxyCODONE SR 10mg (sust. release) tab PO SCH ×2 (08:07→20:06)
[2018-02-08] MEDS: enoxaparin 40mg/0.4ml syringe SUBCUT SCH (08:08)
[2018-02-08 10:20] VITALS: BP 103/53
[2018-02-08 18:00] VITALS: BP 101/51
[2018-02-08] MEDS: clozapine 25mg tablet PO SCH (20:06)
[2018-02-08] MEDS: traZODone 50mg tablet PO SCH (20:06)
[2018-02-08] MEDS: clozapine 100mg tablet PO SCH (20:06)
[2018-02-08] MEDS: zolpidem 5mg tablet PO PRN (20:06)
[2018-02-08 22:00] VITALS: BP 104/58
[2018-02-09] MEDS: HYDROcodone/acetaminophen 10/325mg tab PO PRN ×2 (02:32→14:58)
[2018-02-09 05:00] VITALS: BP 93/55
[2018-02-09] MEDS: sennosides/docusate sodium tablet PO SCH ×2 (08:00→20:08)
[2018-02-09] MEDS: docusate sod 100mg capsule PO SCH ×2 (08:00→20:08)
[2018-02-09] MEDS: busPIRone 5mg tablet PO SCH ×2 (08:07→20:07)
[2018-02-09] MEDS: venlafaxine XR 75mg capsule (Q24H) PO SCH (08:09)
[2018-02-09] MEDS: oxyCODONE SR 10mg (sust. release) tab PO SCH ×2 (08:10→20:08)
[2018-02-09] MEDS: potassium chloride 10mEq ER tablet PO SCH (08:10)
[2018-02-09] MEDS: topiramate 25mg tablet PO SCH ×2 (08:11→20:08)
[2018-02-09] MEDS: oxcarbazepine 150mg tablet PO SCH ×2 (08:12→20:08)
[2018-02-09] MEDS: buPROPion SR 150mg tablet PO SCH (08:13)
[2018-02-09] MEDS: enoxaparin 40mg/0.4ml syringe SUBCUT SCH (08:14)
[2018-02-09 10:00] VITALS: BP 109/62
[2018-02-09 18:00] VITALS: BP 125/78
[2018-02-09] MEDS: zolpidem 5mg tablet PO PRN (20:08)
[2018-02-09] MEDS: clozapine 25mg tablet PO SCH (20:10)
[2018-02-09] MEDS: clozapine 100mg tablet PO SCH (20:10)
[2018-02-09] MEDS: traZODone 50mg tablet PO SCH (20:11)
[2018-02-09 22:00] VITALS: BP 106/66
[2018-02-10] MEDS: HYDROcodone/acetaminophen 10/325mg tab PO PRN ×2 (02:52→14:04)
[2018-02-10 06:00] VITALS: BP 97/54
[2018-02-10] MEDS: sennosides/docusate sodium tablet PO SCH ×2 (08:00→20:11)
[2018-02-10] MEDS: enoxaparin 40mg/0.4ml syringe SUBCUT SCH (08:10)
[2018-02-10] MEDS: busPIRone 5mg tablet PO SCH ×2 (08:10→20:13)
[2018-02-10] MEDS: potassium chloride 10mEq ER tablet PO SCH (08:11)
[2018-02-10] MEDS: venlafaxine XR 75mg capsule (Q24H) PO SCH (08:13)
[2018-02-10] MEDS: docusate sod 100mg capsule PO SCH ×2 (08:13→20:12)
[2018-02-10] MEDS: oxyCODONE SR 10mg (sust. release) tab PO SCH ×2 (08:14→20:11)
[2018-02-10] MEDS: buPROPion SR 150mg tablet PO SCH (08:14)
[2018-02-10] MEDS: topiramate 25mg tablet PO SCH ×2 (08:14→20:11)
[2018-02-10] MEDS: oxcarbazepine 150mg tablet PO SCH ×2 (08:15→20:12)
[2018-02-10 10:00] VITALS: BP 120/65
[2018-02-10 18:00] VITALS: BP 104/70
[2018-02-10] MEDS: traZODone 50mg tablet PO SCH (20:11)
[2018-02-10] MEDS: clozapine 100mg tablet PO SCH ×2 (20:12)
[2018-02-10] MEDS: zolpidem 5mg tablet PO PRN (20:13)
[2018-02-10 22:00] VITALS: BP 94/53
[2018-02-11] MEDS: HYDROcodone/acetaminophen 10/325mg tab PO PRN ×3 (03:23→18:51)
[2018-02-11 06:00] VITALS: BP 107/49
[2018-02-11] MEDS: potassium chloride 10mEq ER tablet PO SCH (07:15)
[2018-02-11] MEDS: sennosides/docusate sodium tablet PO SCH ×2 (07:15→20:32)
[2018-02-11] MEDS: oxyCODONE SR 10mg (sust. release) tab PO SCH ×2 (07:15→20:32)
[2018-02-11] MEDS: busPIRone 5mg tablet PO SCH ×2 (07:15→20:32)
[2018-02-11] MEDS: venlafaxine XR 75mg capsule (Q24H) PO SCH (07:15)
[2018-02-11] MEDS: docusate sod 100mg capsule PO SCH ×2 (07:15→20:32)
[2018-02-11] MEDS: topiramate 25mg tablet PO SCH ×2 (07:15→20:33)
[2018-02-11] MEDS: oxcarbazepine 150mg tablet PO SCH ×2 (07:16→20:33)
[2018-02-11] MEDS: buPROPion SR 150mg tablet PO SCH (07:16)
[2018-02-11] MEDS: enoxaparin 40mg/0.4ml syringe SUBCUT SCH (07:16)
[2018-02-11 10:00] VITALS: BP 128/69
[2018-02-11 18:00] VITALS: BP 126/75
[2018-02-11] MEDS: clozapine 100mg tablet PO SCH ×2 (20:33→20:34)
[2018-02-11] MEDS: traZODone 50mg tablet PO SCH (20:34)
[2018-02-11] MEDS: zolpidem 5mg tablet PO PRN (20:40)
[2018-02-11 22:00] VITALS: BP 106/62
[2018-02-12] MEDS: HYDROcodone/acetaminophen 10/325mg tab PO PRN ×3 (04:08→16:27)
[2018-02-12 06:00] VITALS: BP 115/73
[2018-02-12] MEDS: venlafaxine XR 75mg capsule (Q24H) PO SCH (07:34)
[2018-02-12] MEDS: enoxaparin 40mg/0.4ml syringe SUBCUT SCH (07:35)
[2018-02-12] MEDS: sennosides/docusate sodium tablet PO SCH ×2 (07:35→20:43)
[2018-02-12] MEDS: topiramate 25mg tablet PO SCH ×2 (07:35→20:43)
[2018-02-12] MEDS: docusate sod 100mg capsule PO SCH ×2 (07:35→20:43)
[2018-02-12] MEDS: busPIRone 5mg tablet PO SCH ×2 (07:35→20:44)
[2018-02-12] MEDS: buPROPion SR 150mg tablet PO SCH (07:35)
[2018-02-12] MEDS: oxyCODONE SR 10mg (sust. release) tab PO SCH ×2 (07:35→20:43)
[2018-02-12] MEDS: potassium chloride 10mEq ER tablet PO SCH (07:35)
[2018-02-12] MEDS: oxcarbazepine 150mg tablet PO SCH ×2 (07:40→20:44)
[2018-02-12 18:00] VITALS: BP 104/58
[2018-02-12] MEDS: zolpidem 5mg tablet PO PRN (20:43)
[2018-02-12] MEDS: traZODone 50mg tablet PO SCH (20:43)
[2018-02-12] MEDS: clozapine 100mg tablet PO SCH ×2 (20:44)
[2018-02-12 22:00] VITALS: BP 90/45
[2018-02-13 06:00] VITALS: BP 102/63
[2018-02-13] MEDS: busPIRone 5mg tablet PO SCH (07:28)
[2018-02-13] MEDS: docusate sod 100mg capsule PO SCH (07:28)
[2018-02-13] MEDS: buPROPion SR 150mg tablet PO SCH (07:29)
[2018-02-13] MEDS: oxyCODONE SR 10mg (sust. release) tab PO SCH (07:29)
[2018-02-13] MEDS: potassium chloride 10mEq ER tablet PO SCH (07:29)
[2018-02-13] MEDS: sennosides/docusate sodium tablet PO SCH (07:29)
[2018-02-13] MEDS: oxcarbazepine 150mg tablet PO SCH (07:29)
[2018-02-13] MEDS: venlafaxine XR 75mg capsule (Q24H) PO SCH (07:29)
[2018-02-13] MEDS: topiramate 25mg tablet PO SCH (07:29)
[2018-02-13] MEDS: enoxaparin 40mg/0.4ml syringe SUBCUT SCH (07:30)
[2018-02-13 10:00] VITALS: BP 105/52
[2018-02-13] MEDS ORDERED: WALKERFR (11:57)
[2018-02-13] MEDS: HYDROcodone/acetaminophen 10/325mg tab PO PRN (12:37)
== END 2018-02-13 15:15 | disposition home or self-care (01) | DRG 313 ==
LOC: ORTHO 4S 12:53 → PAS 12:53 → ORTHO 4S 12:54 → EDSTATUS 16:00 → ORTHO 4S 01-31 00:56
PROVIDERS: ADMIT Orthopaedic Surgery Hand Surgery; ATTEND Orthopaedic Surgery Hand Surgery
PROC: 3E0T3BZ Introduction of Anesthetic Agent into Peripheral Nerves and Plexi, Percutaneous Approach (ICD-10-PCS; 2018-01-10)
PROC: 0SSF04Z Reposition Right Ankle Joint with Internal Fixation Device, Open Approach (ICD-10-PCS; 2018-01-10)
PROC: 0QSJ04Z Reposition Right Fibula with Internal Fixation Device, Open Approach (ICD-10-PCS; 2018-01-10)
PROC: 0SPF04Z Removal of Internal Fixation Device from Right Ankle Joint, Open Approach (ICD-10-PCS; principal; 2018-01-10 15:25)
DX: T84.028A Dislocation of other internal joint prosthesis, initial encounter (principal); F25.9 Schizoaffective disorder, unspecified; S82.51XA Displaced fracture of medial malleolus of right tibia, initial encounter for closed fracture; D64.9 Anemia, unspecified; E66.9 Obesity, unspecified; E87.6 Hypokalemia; F31.9 Bipolar disorder, unspecified; F41.9 Anxiety disorder, unspecified; S93.431A Sprain of tibiofibular ligament of right ankle, initial encounter; Y83.1 Surgical operation with implant of artificial internal device as the cause of abnormal reaction of the patient, or of later complication, without mention of misadventure at the time of the procedure; G89.29 Other chronic pain; M54.9 Dorsalgia, unspecified; X58.XXXA Exposure to other specified factors, initial encounter; Z88.6 Allergy status to analgesic agent; Z79.899 Other long term (current) drug therapy; Y92.89 Other specified places as the place of occurrence of the external cause; Z91.19 Patient's noncompliance with other medical treatment and regimen; Z87.891 Personal history of nicotine dependence; Z68.39 Body mass index [BMI] 39.0-39.9, adult; Y93.89 Activity, other specified; Y99.8 Other external cause status
CPT/HCPCS: 36415; 73600; 73610; 80047; 80053; 85025; 87070; 97110; 97116; 97161; 97530; 97542; A6222; A6446; A6449; A7000; G0378; J0690; J0735; J1100; J1650; J1885; J2175; J2250; J2405; J2704; J2795; J3010; J3490; J7120

== ENCOUNTER 2019-06-01 17:40 | Emergency (ER) | payer MEDICAID ==
[~2019-06-01] VITALS: Ht 167.6 cm; Wt 88.6 kg
[~2019-06-01 17:40] MED LIST changes: +BUSP30TA2 PO; -BUSP5TAB3 PO; +CLOZ100T31 PO; +PALI234D IM; -TOPI25TA15 PO; +TOPI25TA49 PO; -TRAZ-218 PO; +TRAZ-251 PO; +WALKERFR; +ZOLP10TA PO; -ZOLP5TAB2 PO; -cefazolin/dext.iso 2gm/100 ML IV ONE; -famotidine 20mg tablet PO ONE
--- NOTE | 2019-06-01 17:50 | NUR ---
Patient brought over to bed 22, escorted by security and patient's aunt. Patient reportedly has history of schizophrenia. Patient changing into green unit scrubs.
--- NOTE | 2019-06-01 18:42 | NUR ---
The patient is a 38 year old female who was brought here by a family member from [facility]. The family member, Rachel, . The family member was called by the patient's 17 year old daughter who lives with her in [facility]. The patient has been very psychotic and has not eaten or slept for at least 3 days. She presented to the unit as agitated and making bizarre comments. She is unable to state what medications she takes and the family member was unable to give an aaccurate list as well. She did bring her medications which were in complete disaray and it was unclear which she was actually taking or not taking and her behavior and psychiatric symptoms would indicate that she was not taking her medications as prescribed. THe patient's Pharmacy in [place] is [facility] which is not open until Monday.
--- NOTE | 2019-06-01 18:58 | NUR ---
Consulted pyschiatry PAAl regarding the patient and orders received.
[2019-06-01] MEDS ORDERED: OLANZapine 5mg rapidly disint. tablet PO ONE ×2 (19:00→21:00)
[2019-06-01] MEDS: buprenorphine/naloxone 2-0.5mg sublingual tablet SL SCH (19:53)
--- NOTE | 2019-06-01 20:28 | NUR ---
The patient is up to use the bathroom after requested to give a urine sample.
[2019-06-01 20:29] LABS: BASOPHILS # (AUTO) 0.1 X10'3 (0-0.2); BASOPHILS % (AUTO) 0.9 % (0-1); EOSINOPHILS # (AUTO) 0.2 X10'3 (0-0.9); EOSINOPHILS % (AUTO) 2.3 % (0-6); HEMATOCRIT 38.1 % (35.0-45.0); HEMOGLOBIN 12.6 g/dl (12.0-16.0); LYMPHOCYTES # (AUTO) 2.6 X10'3 (1.1-4.8); LYMPHOCYTES % (AUTO) 28.9 % (21-51); MEAN CORPUSCULAR HEMOGLOBIN 27.8 PG (27.0-31.0); MEAN CORPUSCULAR HGB CONC 33.1 g/dL (33.0-36.5); MEAN PLATELET VOLUME 7.9 FL (7.4-10.4); MONOCYTES # (AUTO) 0.7 X10'3 (0-0.9); NEUTROPHILS # (AUTO) 5.4 X10'3 (1.8-7.7); NEUTROPHILS % (AUTO) 59.9 % (42-75); PLATELET COUNT 432 X10'3 (140-440); RED BLOOD COUNT 4.53 X10'6 (4.20-5.60); RED CELL DISTRIBUTION WIDTH 17.4 % (11.5-14.5); WHITE BLOOD COUNT 9.1 X10'3 (4.5-11.0)
[2019-06-01 20:34] LABS: ALANINE AMINOTRANSFERASE 18 U/L (12-78); ALBUMIN 3.1 G/DL (3.4-5.0); ALBUMIN/GLOBULIN RATIO 0.9 (1.1-1.5); ALKALINE PHOSPHATASE 126 IU/L (46-116); ANION GAP 9 (8-16); ASPARTATE AMINO TRANSFERASE 20 U/L (10-37); BILIRUBIN,TOTAL 0.3 MG/DL (0.1-1.0); BLOOD UREA NITROGEN 5 MG/DL (7-18); BUN/CREATININE RATIO 6.1 (6.6-38.0); CALCIUM 8.9 MG/DL (8.5-10.1); CHLORIDE 107 MMOL/L (99-107); CREATININE 0.82 MG/DL (0.40-0.90); GLUCOSE 89 MG/DL (70-104); POTASSIUM 3.4 MMOL/L (3.5-5.1); SODIUM 142 MMOL/L (135-145); TOTAL CARBON DIOXIDE 26.3 MMOL/L (24-32); TOTAL PROTEIN 6.7 G/DL (6.4-8.2); eGFR 77 ML/MIN
[2019-06-01 20:46] LABS: ETHANOL < 0.010 GM/DL (0.0-0.010)
[2019-06-01] MEDS ORDERED: LORazepam 1 MG tablet PO PRN (21:00)
--- NOTE | 2019-06-01 21:00 | NUR ---
The patient is awake and continues to appear to be fearful and psychotic. Vital signs 98.5, 75, 15, 159/77. Consulted with psychiatry Khushi NÚÑEZ and updated her on patient's condition and orders received.
--- NOTE | 2019-06-01 21:38 | NUR ---
Patient requested to give a urine sample but she continues to state she is unable to void at this time. Bedside commode set up at bedside.
[2019-06-01 22:06] LABS: URINE HCG NEGATIVE (NEG)
[2019-06-01 22:08] LABS: CLARITY,URINE CLOUDY (Clear); COLOR,URINE YELLOW (Yellow); GLUCOSE, URINE NEGATIVE (Neg); KETONES,URINE 15 mg/dl (Neg); LEUKOCYTE ESTERASE ,URINE SMALL (Neg); NITRITES, URINE NEGATIVE (Neg); OCCULT BLOOD,URINE NEGATIVE (Neg); PH,URINE 6.5 (4.8-8.0); PROTEIN,URINE NEGATIVE (Neg)
[2019-06-01 22:11] LABS: UA COLLECTION TYPE STRAIGHT CATH
[2019-06-01 22:15] LABS: BACTERIA,URINE 3+ /HPF (Neg); MUCUS STRANDS NONE SEEN /LPF (Neg); RBC,URINE 0-2 /HPF (0-2); SQUAMOUS EPITHELIAL CELL,UR FEW /LPF (FEW); URINE AMPHETAMINE SCREEN POSITIVE (Neg); URINE BARBITUATE SCREEN NEGATIVE (Neg); URINE BENZODIAZEPINES SCREEN NEGATIVE (Neg); URINE CANNABINOID SCREEN POSITIVE (Neg); URINE COCAINE SCREEN NEGATIVE (Neg); URINE METHADONE SCREEN NEGATIVE (Neg); URINE OPIATE SCREEN POSITIVE (Neg); URINE PHENCYCLIDINE SCREEN NEGATIVE (Neg)
[2019-06-01] MEDS ORDERED: haloperidol lactate 5mg/ml inj IM ONE (22:50)
[2019-06-01] MEDS ORDERED: diphenhydrAMINE 50 mg/ml inj IM ONE (22:50)
[2019-06-01] MEDS ORDERED: LORazepam 2 mg/ml vial IM ONE (22:50)
--- NOTE | 2019-06-01 23:05 | NUR ---
The patient became very agitated and screaming "You crack whore bitch!! Everybody is wired for sound! Do you have a crack fire light??! I want heroin" "I was storing my crap pipe in my tubes!" Dr. Flood is at the bedside and orders received.
--- NOTE | 2019-06-01 23:12 | NUR ---
Patient is continuing to yell "Bitch your face is going to be shaved off by a fire light!!!" Attempting to limit stimuli of the patient.
--- NOTE | 2019-06-01 23:34 | NUR ---
The patient appears to be sleeping
--- NOTE | 2019-06-02 01:53 | NUR ---
The patient appears to be sleeping
--- NOTE | 2019-06-02 03:22 | NUR ---
The patient appears to be sleeping
--- NOTE | 2019-06-02 09:07 | NUR ---
Patient sleeping on her right side, respirations even and unlabored.
--- NOTE | 2019-06-02 11:09 | NUR ---
Patient remains asleep.
--- NOTE | 2019-06-02 12:28 | NUR ---
[facility] is here evaluating client. Registration came back and obtained signatures. Patient spoke to her daughter on the telephone. Patient now resting in bed.
[2019-06-02] MEDS: buprenorphine/naloxone 2-0.5mg sublingual tablet SL SCH (13:29)
[2019-06-02 13:40] VITALS: BP 105/65
== END 2019-06-02 13:45 | disposition home or self-care (01) ==
LOC: ER 17:42
DX: F29 Unspecified psychosis not due to a substance or known physiological condition (principal); F31.9 Bipolar disorder, unspecified; F41.9 Anxiety disorder, unspecified; G89.29 Other chronic pain; F17.200 Nicotine dependence, unspecified, uncomplicated; Z88.5 Allergy status to narcotic agent; Z79.899 Other long term (current) drug therapy
CPT/HCPCS: 36415; 80053; 80305; 80320; 81001; 81025; 84443; 85025; 96372; 99284; J1200; J1630; J2060